=== PATIENT | female | born 1940 | race Caucasian/White ===

== ENCOUNTER → 2017-08-26 | Outpatient (CLI) | payer MEDICARE, OTHER ==
--- NOTE | 2017-08-26 16:14 | WOMENS IMAGING REPORT ---
EXAM DESCRIPTION: 3D SCREENING MAMMO BILAT COMPLETED DATE/TIME: 08/26/2017 1:51 pm REASON FOR STUDY: SCREENING MAMMO Z12.31 ENCNTR SCREEN MAMMOGRAM FOR MALIGNANT NEOPLASM OF RAINA M89. 9 DISORDER OF BONE, UNSPECIFIED COMPARISON: 2013 TECHNIQUE: Standard craniocaudal and mediolateral oblique views of each breast recorded using digita l acquisition and breast tomosynthesis. LIMITATIONS: None. FINDINGS: No masses, calcifications or architectural distortion. No areas of suspicion. Read with the assistance of CAD. .[facility] - R2 Cenova Version 1.3 .[facility] - R2 Cenova Version 1.3 .[facility] - R2 Cenova Version 2.4 [facility] [place]2 Cenova Version 2.4 [facility] - R2 Resource Protection Specialist Version 9.2 IMPRESSION: NORMAL MAMMOGRAM. BIRADS 1. BREAST DENSITY: b. There are scattered areas of fibroglandular density. BIRAD: 1 NEGATIVE RECOMMENDATION: ROUTINE SCREENING COMMENT: The patient has been notified of the results by letter per SA requirements. Additional no tification policies are in place for contacting patient with suspicious or incomplete findings. Quality ID #[id number]: The [employer] recommends an annual screening mammogram for women aged 40 years or over. This facility utilizes a reminder system to ensure that all patients receive reminder letters, and/or direct phone calls for appointments. This includes reminders for routine scr eening mammograms, diagnostic mammograms, or other Breast Imaging Interventions when appropriate. Th is patient will be placed in the appropriate reminder system. The [employer] [place] [employer] (ACR) has developed recommendations for screening MRI of the breast s in certain patient populations, to be used in conjunction with mammography. Breast MRI surveillanc e may be appropriate for women with more than 20% lifetime risk of developing breast cancer as deter mined by genetic testing, significant family history of the disease, or history of mantle radiation f or Hodgkins Disease. ACR Practice Guidelines 2008. DBT Technology DBT is a type of tomographic mammography. With conventional mammography, overlapping breast tissue ma y make lesions difficult to detect, even with good compression. DBT uses an x-ray tube that rotates a round the breast, taking images at different angles. These images are then combined to create thin sl ices of the breast that the radiologist can view as a 3D reconstruction. The [employer] unit can perform full-field digital mammograms (2D imaging); or DBT (3D imaging); or both, in a combination mode that quickly performs both the mammogram and the tomosynthesis scan while the breast is still compressed. PQRS 6045F: Fluoroscopic imaging is not utilized for breast tomosynthesis. TECHNICAL DOCUMENTATION: FINDING NUMBER: (1) ASSESSMENT: (1) JOB ID: [id number] [employer]- All Rights Reserved Reading location - IP/workstation name: [email or web address]
--- NOTE | 2017-08-26 16:30 | WOMENS IMAGING REPORT ---
EXAM DESCRIPTION: BONE DENSITY HIP/SPINE COMPLETED DATE/TIME: 08/26/2017 1:51 pm REASON FOR STUDY: DISORDER OF BONE, UNSPECIFIED Z12.31 ENCNTR SCREEN MAMMOGRAM FOR MALIGNANT NEOPLA SM OF RAINA M89.9 DISORDER OF BONE, UNSPECIFIED COMPARISON: 2013 TECHNIQUE: Dual-Energy X-ray Absorptiometry (DEXA) of the AP Spine and Hip. LIMITATIONS: None. FINDINGS: LUMBAR SPINE: The bone mineral density (BMD) measured from L1-L4 in the AP projection correlates with a T-score of -1.9, which is osteopenic as defined by the World Health Organization. This is stable compared to 20 14 HIP: The bone mineral density (BMD) measured in the left femoral neck at the hip correlates with a T-score of -1.8, which is osteopenic as defined by the World Health Organization. This is stable compared t o 2013 IMPRESSION: 1. LUMBAR SPINE: Osteopenic 2. HIP: Osteopenic COMMENT: The World Health Organization defines low BMD as follows: T-score: Normal: Greater than -1.0 Osteopenia: Between -1.0 and -2.5 Osteoporosis: Less than -2.5 without fractures Established osteoporosis: Less than -2.5 with fractures In general, you may wish to consider: Diagnosis Treatment Follow-up DEXA Normal BMD Prevention 2-3 years Osteopenia Prevention/Therapy 1-2 years Osteoporosis Therapy Yearly TECHNICAL DOCUMENTATION: JOB ID: [id number]- All Rights Reserved Reading location - IP/workstation name: [email or web address]
== END ==
LOC: WI 13:23
PROVIDERS: ATTEND Nurse Practitioner
DX: Z12.31 Encounter for screening mammogram for malignant neoplasm of breast (principal); M85.88 Other specified disorders of bone density and structure, other site
CPT/HCPCS: 77063; 77067; 77080

== ENCOUNTER 2019-09-02 09:02 | Emergency (ER) | payer MEDICARE ==
[2019-09-02] MEDS ORDERED: ONDANSETRON HCL INJ/PF 4 MG/2 ML SDV IV ONE (09:36)
[2019-09-02] MEDS ORDERED: MORPHINE SULFATE 10 MG/ML INJ IV ONE ×2 (09:36→09:39)
[2019-09-02 09:45] LABS: ABSOLUTE MONOCYTES (AUTO) 0.4 10^3/uL (0.1-1.4); ABSOLUTE NEUT (AUTO) 7.3 10^3/uL (1.7-8.2); BASOPHILS % (AUTO) 0.3 % (0-2); EOSINOPHILS % (AUTO) 0.1 % (0-6); HEMATOCRIT 41.2 % (36.0-47.0); HEMOGLOBIN 14.1 g/dL (12.0-15.5); LYMPHOCYTES % (AUTO) 10.8 % (13-45); MEAN CORPUSCULAR HEMOGLOBIN 31.1 pg (27.0-33.4); MEAN CORPUSCULAR HGB CONC 34.3 g/dL (32.0-36.0); MEAN CORPUSCULAR VOLUME 91 fl (80-97); PLATELET COUNT 262 10^3/uL (150-450); RED BLOOD COUNT 4.54 10^6/uL (3.72-5.28); RED CELL DISTRIBUTION WIDTH 13.6 % (11.5-14.0); SEGMENTED NEUTROPHILS % (AUTO) 83.8 % (42-78); TOTAL CELLS COUNTED % (AUTO) 100 %; WHITE BLOOD COUNT 8.8 10^3/uL (4.0-10.5)
[2019-09-02 10:08] LABS: ALBUMIN 4.4 g/dL (3.5-5.0); ALKALINE PHOSPHATASE 53 U/L (38-126); ANION GAP 8 (5-19); ASPARTATE AMINO TRANSFERASE 23 U/L (14-36); BILIRUBIN,TOTAL 0.7 mg/dL (0.2-1.3); BLOOD UREA NITROGEN 14 mg/dL (7-20); CALCIUM 10.1 mg/dL (8.4-10.2); CARBON DIOXIDE 26 mmol/L (22-30); CHLORIDE 103 mmol/L (98-107); CREATINE KINASE 66 U/L (30-135); GLUCOSE 111 mg/dL (75-110); POTASSIUM 3.8 mmol/L (3.6-5.0); TOTAL PROTEIN 6.8 g/dL (6.3-8.2)
[2019-09-02] MEDS ORDERED: NORMAL SALINE 1000 ML 1,000 ML IV ONE (10:10)
--- NOTE | 2019-09-02 10:11 | ER Document Report ---
Entered by ROXY LARA SCRIBE 09/02/19 0935 Acting as scribe for:CARLOS STROUD MD ED General - General Chief Complaint: Chest Pain > 30 Stated Complaint: CHEST PAIN Time Seen by Provider: 09/02/19 09:15 Primary Care Provider: ZIYAD ZAZUETA NP [Primary Care Provider] - Follow up as needed Mode of Arrival: Ambulatory Information source: Patient Notes: This 79 year old female patient presents to the emergency department today with complaints of abdominal pain which began this morning at 4:00 AM. Patient states that she feels like her "intestines are tied in knots". Patient complains of nausea without vomiting. Patient adds that it "kind of hurts all over" but the majority of her pain seems to be in the upper abdomen. TRAVEL OUTSIDE OF THE [place] IN LAST 30 DAYS: No - Related Data Allergies/Adverse Reactions: No Known Allergies Allergy (Verified 02/28/16 07:48) Past Medical History - General Information source: Patient - Social History Smoking Status: Never Smoker Cigarette use (# per day): No Chew tobacco use (# tins/day): No Frequency of alcohol use: Occasional Drug Abuse: None Lives with: Family Family History: Reviewed & Not Pertinent Patient has suicidal ideation: No Patient has homicidal ideation: No - Past Medical History Cardiac Medical History: Reports: Hx Hypertension - ON MEDS Musculoskeletal Medical History: Reports Hx Arthritis - hands, neck, hip Traumatic Medical History: Past Surgical History: Reports: Hx Appendectomy - at age [age] years old, Hx Inguinal Hernia - [place] in the , Hx Tubal Ligation - Immunizations Hx Diphtheria, Pertussis, Tetanus Vaccination: Yes Hx Pneumococcal Vaccination: 03/20/15 Review of Systems - Review of Systems Constitutional: No symptoms reported EENT: No symptoms reported Cardiovascular: No symptoms reported Respiratory: No symptoms reported Gastrointestinal: See HPI, Abdominal pain, Nausea. denies: Vomiting Genitourinary: No symptoms reported Female Genitourinary: No symptoms reported Musculoskeletal: No symptoms reported Skin: No symptoms reported Hematologic/Lymphatic: No symptoms reported Neurological/Psychological: No symptoms reported -: Yes All other systems reviewed and negative Physical Exam - Vital signs Vitals: Resp Pulse Ox 19 100 09/02/19 09:19 09/02/19 09:19 - Notes Notes: Physical Exam: General: Alert, appears uncomfortable, in distress secondary to pain. HEENT: Normocephalic. Atraumatic. PERRL. Extraocular movements intact. Orophary nx clear. Neck: Supple. Non-tender. Respiratory: No respiratory distress. Clear and equal breath sounds bilaterally. Cardiovascular: Regular rate and rhythm. Abdominal: Appears nauseated. No lower abdominal tenderness with palpation, exquisite epigastric and right upper quadrant tenderness with palpation. No distension. Normal Bowel Sounds. Back: No gross abnormalities. Extremities: Moves all four extremities. Upper extremities: Normal inspection. Normal ROM. Lower extremities: Normal inspection. No edema. Normal ROM. Neurological: Normal cognition. AAOx4. Normal speech. Psychological: Normal affect. Normal Mood. Skin: Warm. Dry. Normal color. Course - Re-evaluation Re-evalutation: 09/02/19 12:29 Repeat evaluation at this time after the patient has had pain medication and nausea medication on board for a while. She is now most tender in the right lower quadrant and does appear to be having focal tenderness over McBurney's point. We will proceed to IV contrasted CT scan. 09/02/19 14:09 I reviewed the findings with the patient. She states that her discomfort and nausea is better at this time. She does have an infirm spouse at home whom she cares for and would prefer to try outpatient management of her small bowel ileus at this time. She will be discharged with prescriptions for Zofran and Bentyl. She will try small sips of cool clear liquids for today and this evening. She understands that if she does not improve with this management, if her nauseousness continues to be a problem, or if she does worsen, then she will need to return to the hospital for admission. - Vital Signs Vital signs: Temp Pulse Resp BP Pulse Ox 97.5 F 14 132/56 H 98 09/02/19 09:20 09/02/19 14:01 09/02/19 14:01 09/02/19 14:01 - Laboratory Result Diagrams: 09/02/19 09:27 09/02/19 09:27 Laboratory results interpreted by me: 09/02/19 09/02/19 09/02/19 09:27 09:27 10:39 Lymph % (Auto) 10.8 L Seg Neutrophils % 83.8 H Sodium 136.6 L Glucose 111 H Urine Ketones 20 H - Diagnostic Test Radiology reviewed: Image reviewed, Reports reviewed - Gallbladder ultrasound shows a right renal cyst and mild dilatation of the right renal pelvis. No other abnormalities seen. CT scan of the abdomen pelvis with IV contrast shows a 3 cm lower pole cyst in the right kidney, and gas and with fluid levels with nondilated loops of small bowel suggestive of a small bowel ileus. No other abnormalities. - EKG Interpretation by Me EKG shows normal: Sinus rhythm, Sabael, Intervals, QRS Complexes, ST-T Waves Rate: Normal - 61 Rhythm: NSR Sabael/QRS: RBBB Discharge - Discharge Clinical Impression: Adynamic ileus, Nausea Abdominal pain Qualifiers: Abdominal location: generalized Qualified Code(s): R10.84 - Generalized abdominal pain Condition: Stable Disposition: HOME, SELF-CARE Additional Instructions: Nausea or Vomiting, Nonspecific Vomiting (or nausea without vomiting) can be caused by many different problems. Of course, it can mean that something's wrong with the stomach, such as "stomach flu," ulcers, or inflammation. But it can also be a symptom of a problem that has nothing to do with the stomach or intestines. Vomiting is common with severe headaches, earaches, and tonsillitis. We see it with pneumonia or heart attacks. Drugs can cause nausea. Many abdominal problems cause vomiting; for example, gallstones, kidney stones, pancreatitis, and int estinal obstruction (blocked bowels). In most cases, curing the vomiting depends on fixing the problem that caused it. For temporary relief, we may use an anti-nausea medicine. For home use, we can prescribe suppositories, chewable pills, pills that dissolve in the mouth, or liquid anti-nausea drugs. If the vomiting seems to be caused by a problem in the stomach, acid-suppressing drugs may be prescribed as well. It's important to avoid dehydration. Sip clear liquids. Take increasing am ounts of fluid over the first 24 hours. Then start small amounts of bland foods (such as dry toast, applesauce, mashed potato). Avoid aspirin, tobacco, and alcohol. Gradually resume your usual diet. If the vomiting worsens, if the problem that's making you vomit worsens, or if there's evidence of bleeding in the stomach (such as black, tarry stool, bloody or black vomit, or lightheadedness), you should return immediately. Call your doctor if you aren't improved in 24 to 36 hours. Abdominal Pain There are many causes of abdominal pain. Pain can mean a serious problem requiring surgery (such as appendicitis). It can also be an innocent problem that goes away on its own (such as a viral infection). Often, time must pass to determine the cause of pain. The physician does not feel that hospitalization is necessary, at present. Things may change within the next 24 hours. Call the doctor or come back for re- examination if any problems occur, such as: (1) Pain that becomes more severe, steady, or becomes concentrated in one specific area. Also, pain that is more severe with movement or coughing. (2) Vomiting that persists or becomes more frequent. (3) Blood in the vomitus, urine, or bowel movements. Blood in the stool may have a tarry or black appearance. (4) Shaking chills or fever greater than 100 degrees F. (5) The abdomen becomes more distended or swollen. (6) Bowel movements cease. (7) Failure to improve as expected. Your evaluation today suggest that you have a small bowel ileus. This is a condition where the small bowel stops functioning properly and does not propel foods and fluids forward. There may be a feeling of distention, with diffuse abdominal cramping and nausea. Take medications as prescribed for nausea and abdominal cramps. Drink small sips of cool clear liquids throughout the day in the evening. Do not try to start solid food until you have been nausea free and are moving your bowels well. Follow-up with your primary care provider as needed. RETURN TO THE EMERGENCY ROOM IF ANY NEW OR WORSENING SYMPTOMS. 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
[2019-09-02 10:20] LABS: CREATINE KINASE MB 3.21 ng/mL (<4.55)
[2019-09-02 10:27] LABS: TROPONIN I < 0.012 ng/mL
[2019-09-02 10:59] LABS: AMORPHOUS SEDIMENT,URINE 1+ /HPF; APPEARANCE,URINE TURBID; BILIRUBIN,URINE NEGATIVE (NEGATIVE); COLOR,URINE YELLOW; GLUCOSE, URINE NEGATIVE (NEGATIVE); KETONES,URINE 20 mg/dL (NEGATIVE); LEUKOCYTE ESTERASE,URINE NEGATIVE (NEGATIVE); NITRITE,URINE NEGATIVE (NEGATIVE); PROTEIN,URINE NEGATIVE (NEGATIVE); URINE SPECIFIC GRAVITY 1.015; UROBILINOGEN,URINE NEGATIVE mg/dL (<2.0)
--- NOTE | 2019-09-02 11:25 | RADIOLOGY REPORT (SQ) ---
EXAM DESCRIPTION: CHEST SINGLE VIEW IMAGES COMPLETED DATE/TIME: 09/02/2019 10:12 am REASON FOR STUDY: Epigastric abdominal pain with nausea COMPARISON: 09/26/2015 EXAM PARAMETERS: NUMBER OF VIEWS: One view. TECHNIQUE: Single frontal radiographic view of the chest acquired. RADIATION DOSE: NA LIMITATIONS: None. FINDINGS: LUNGS AND PLEURA: No opacities, masses or pneumothorax. No pleural effusion. MEDIASTINUM AND HILAR STRUCTURES: No masses. Contour normal. HEART AND VASCULAR STRUCTURES: Heart normal in size. Normal vasculature. BONES: No acute findings. HARDWARE: None in the chest. OTHER: No other significant finding. IMPRESSION: NO ACUTE RADIOGRAPHIC FINDING IN THE CHEST. TECHNICAL DOCUMENTATION: JOB ID: [id number] 2010 [employer]- All Rights Reserved Reading location - IP/workstation name: [email or web address]
--- NOTE | 2019-09-02 12:23 | EKG REPORT ---
SEVERITY:- ABNORMAL ECG - SINUS RHYTHM RIGHT BUNDLE BRANCH BLOCK : Confirmed by: Lukasz Olivares MD 02-Sep-2019 12:22:58
--- NOTE | 2019-09-02 12:23 | RADIOLOGY REPORT (SQ) ---
EXAM DESCRIPTION: U/S ABDOMEN LIMITED W/O DOP IMAGES COMPLETED DATE/TIME: 09/02/2019 12:08 pm REASON FOR STUDY: RUQ and epigastric pain with nausea COMPARISON: None. TECHNIQUE: Dynamic and static grayscale images acquired of the abdomen and recorded on PACS. Esmero magalie selected color Doppler and spectral images recorded. LIMITATIONS: None. FINDINGS: PANCREAS: No masses. Visualized pancreatic duct normal caliber. LIVER: The liver measures 13.5 cm in length, normal size. No masses. Echotexture normal. LIVER VASCULATURE: Normal directional flow of the main portal vein and hepatic veins. GALLBLADDER: No stones. The gallbladder wall measures 2.3 mm, normal wall thickness. No pericholecy stic fluid. ULTRASOUND-DETECTED DAI'S SIGN: Negative. INTRAHEPATIC DUCTS AND COMMON DUCT: CBD measures 4.9 mm in diameter, normal. The intrahepatic ducts n ormal caliber. No filling defects. INFERIOR VENA CAVA: Normal flow. AORTA: No aneurysm. RIGHT KIDNEY: The right kidney measures 9.0 cm in length. Mild pelvic dilatation without evidence o f calyceal dilatation. A 3.3 x 2.7 x 2.0 cm cyst in the lower pole of the kidney. No calcifications . PERITONEAL AND RIGHT PLEURAL SPACE: No ascites or effusions. OTHER: No other significant findings. IMPRESSION: 1. Right renal cyst. 2. Mild dilatation of the right renal pelvis. No evidence of calyceal dilatation. 3. Examination is otherwise unremarkable sonographically. TECHNICAL DOCUMENTATION: JOB ID: [id number] 2010 [employer]- All Rights Reserved Reading location - IP/workstation name: [email or web address]
--- NOTE | 2019-09-02 13:23 | RADIOLOGY REPORT (SQ) ---
EXAM DESCRIPTION: CT ABD/PELVIS WITH IV ONLY IMAGES COMPLETED DATE/TIME: 09/02/2019 1:07 pm REASON FOR STUDY: RLQ abd pain COMPARISON: None. TECHNIQUE: CT scan of the abdomen and pelvis performed using helical scanning technique with dynamic intravenous contrast injection. No oral contrast. Images reviewed with lung, soft tissue, and bone windows. Reconstructed coronal and sagittal MPR images reviewed. Delayed images for evaluation of the urinary system also acquired. All images stored on PACS. All CT scanners at this facility use dose modulation, iterative reconstruction, and/or weight based d osing when appropriate to reduce radiation dose to as low as reasonably achievable (ALARA). [facility]: Dose Right [facility]: CareDose [facility]: Dose Right [facility]: Teradose 4D [facility]: [employer] CONTRAST TYPE AND DOSE: contrast/concentration: Isovue 350.00 mg/ml; Total Contrast Delivered: 50.0 ml; Total Saline Delivered: 65.0 ml RENAL FUNCTION: GFR > 60. RADIATION DOSE: CT Rad equipment meets quality standard of care and radiation dose reduction techniq ues were employed. CTDIvol: NaN - NaN mGy. DLP: 0 mGy-cm.. LIMITATIONS: Artifact from right hip arthroplasty. FINDINGS: LOWER CHEST: No significant findings. No nodules or infiltrates. LIVER: Normal size. No masses. No dilated ducts. SPLEEN: Normal size. No focal lesions. PANCREAS: No masses. No significant calcifications. No adjacent inflammation or peripancreatic fluid collections. Pancreatic duct not dilated. GALLBLADDER: No identified stones by CT criteria. No inflammatory changes to suggest cholecystitis. ADRENAL GLANDS: No significant masses or asymmetry. RIGHT KIDNEY AND URETER: 3 cm lower pole cyst. No solid masses. No significant calcifications. N o hydronephrosis or hydroureter. LEFT KIDNEY AND URETER: No solid masses. No significant calcifications. No hydronephrosis or hydr oureter. AORTA AND VESSELS: No aneurysm. RETROPERITONEUM: No retroperitoneal adenopathy, hemorrhage or masses. BOWEL AND PERITONEAL CAVITY: Gas fluid levels within nondilated loops of small bowel. No masses or i nflammatory changes. No free fluid or peritoneal masses. APPENDIX: Surgically absent. PELVIS: No mass. No free fluid. Normal bladder. ABDOMINAL WALL: No masses. No hernias. BONES: No significant or acute findings. OTHER: No other significant finding. IMPRESSION: Ileus. No evidence of bowel obstruction. TECHNICAL DOCUMENTATION: JOB ID: [id number] Quality ID # [id number]: Final reports with documentation of one or more dose reduction techniques (e.g., Au tomated exposure control, adjustment of the mA and/or kV according to patient size, use of iterative reconstruction technique) 2010 [employer]- All Rights Reserved Reading location - IP/workstation name: [email or web address]
[2019-09-02 14:28] VITALS: BP 132/52
== END 2019-09-02 14:26 | disposition home or self-care (01) ==
LOC: ER 09:02
DX: K56.0 Paralytic ileus (principal); R11.0 Nausea; R10.84 Generalized abdominal pain; R10.816 Epigastric abdominal tenderness; R10.811 Right upper quadrant abdominal tenderness; Q61.01 Congenital single renal cyst; I45.10 Unspecified right bundle-branch block; Z90.49 Acquired absence of other specified parts of digestive tract; Z98.51 Tubal ligation status
CPT/HCPCS: 93005; 99285; 96361; 96374; 96375; 36415; 82553; 82550; 83690; 85025; 80053; 81001; 84484; 71045; 76705; 74177; 93010; J2270; J2405; J7030

== ENCOUNTER 2019-09-02 21:11 | Inpatient (IN) | payer MEDICARE ==
[2019-09-02] MEDS ORDERED: ONDANSETRON HCL INJ/PF 4 MG/2 ML SDV IV ONE (21:48)
[2019-09-02] MEDS ORDERED: MORPHINE SULFATE 10 MG/ML INJ IV ONE (21:48)
--- NOTE | 2019-09-02 21:48 | ER Document Report ---
ED Medical Screen (RME) - General Stated Complaint: VOMITING AND ABDOMINAL PAIN Primary Care Provider: ZIYAD ZAZUETA NP [Primary Care Provider] - Follow up as needed Notes: Patient is an 79-year-old white female who was seen here earlier today for complaints of abdominal pain. She was diagnosed with an ileus after a CAT scan, had her pain and nausea controlled at that time. She wished to be discharged home for outpatient management of this ileus given a spouse who relied on her for care. She was advised to return if worsening for admission. She states she went home laid down at the prescriptions filled and started feeling "sick to my stomach" again. Complains of ongoing nausea and vomiting as well as abdominal pain. I have treated and performed a rapid initial assessment of this patient. A comprehensive ED assessment and evaluation of the patient, analysis of test results and completion of medical decision making process will be conducted by additional ED providers. PHYSICAL EXAMINATION: GENERAL: Well-appearing, well-nourished and in no acute distress. A&Ox4. Answers questions appropriately. TRAVEL OUTSIDE OF THE [place] IN LAST 30 DAYS: No - Related Data Allergies/Adverse Reactions: No Known Allergies Allergy (Verified 02/28/16 07:48) Past Medical History - Past Medical History Cardiac Medical History: Reports: Hx Hypertension - ON MEDS Denies: Hx Coronary Artery Disease, Hx Heart Attack Pulmonary Medical History: Denies: Hx Asthma, Hx Bronchitis, Hx COPD, Hx Pneumonia Neurological Medical History: Denies: Hx Cerebrovascular Accident, Hx Seizures GI Medical History: Denies: Hx Hepatitis, Hx Hiatal Hernia, Hx Ulcer Musculoskeltal Medical History: Reports Hx Arthritis - hands, neck, hip Traumatic Medical History: Infectious Medical History: Denies: Hx Hepatitis Past Surgical History: Reports: Hx Appendectomy - at age [age] years old, Hx Inguinal Hernia - RIH in the , Hx Tubal Ligation. Denies: Hx Hysterectomy, Hx Mastectomy, Hx Open Heart Surgery, Hx Pacemaker - Immunizations Hx Diphtheria, Pertussis, Tetanus Vaccination: Yes Physical Exam - Vital signs Vitals: Temp Pulse Resp BP Pulse Ox 98.2 F 57 L 16 171/62 H 99 09/02/19 21:20 09/02/19 21:20 09/02/19 21:20 09/02/19 21:20 09/02/19 21:20 Course - Vital Signs Vital signs: Temp Pulse Resp BP Pulse Ox 98.2 F 57 L 16 171/62 H 99 09/02/19 21:20 09/02/19 21:20 09/02/19 21:20 09/02/19 21:20 09/02/19 21:20 Doctor's Discharge - Discharge Referrals: ZIYAD ZAZUETA NP [Primary Care Provider] - Follow up as needed
[2019-09-02 22:47] LABS: ABSOLUTE LYMPHOCYTES (AUTO) 0.8 10^3/uL (0.5-4.7); ABSOLUTE MONOCYTES (AUTO) 0.4 10^3/uL (0.1-1.4); ABSOLUTE NEUT (AUTO) 11.8 10^3/uL (1.7-8.2); BASOPHILS % (AUTO) 0.3 % (0-2); HEMATOCRIT 46.7 % (36.0-47.0); HEMOGLOBIN 15.8 g/dL (12.0-15.5); LYMPHOCYTES % (AUTO) 6.2 % (13-45); MEAN CORPUSCULAR HGB CONC 33.8 g/dL (32.0-36.0); MEAN CORPUSCULAR VOLUME 92 fl (80-97); MONOCYTES % (AUTO) 3.2 % (3-13); PLATELET COUNT 284 10^3/uL (150-450); RED BLOOD COUNT 5.09 10^6/uL (3.72-5.28); RED CELL DISTRIBUTION WIDTH 13.2 % (11.5-14.0); SEGMENTED NEUTROPHILS % (AUTO) 90.3 % (42-78); TOTAL CELLS COUNTED % (AUTO) 100 %
[2019-09-02 23:03] LABS: ALBUMIN 4.8 g/dL (3.5-5.0); ALKALINE PHOSPHATASE 60 U/L (38-126); ANION GAP 11 (5-19); ASPARTATE AMINO TRANSFERASE 27 U/L (14-36); BLOOD UREA NITROGEN 11 mg/dL (7-20); CALCIUM 10.3 mg/dL (8.4-10.2); CARBON DIOXIDE 25 mmol/L (22-30); CHLORIDE 99 mmol/L (98-107); GLUCOSE 138 mg/dL (75-110); POTASSIUM 4.2 mmol/L (3.6-5.0); TOTAL PROTEIN 7.5 g/dL (6.3-8.2)
--- NOTE | 2019-09-02 23:50 | ER Document Report ---
ED GI/ - General Chief Complaint: Abdominal Pain Stated Complaint: VOMITING AND ABDOMINAL PAIN Time Seen by Provider: 09/02/19 23:25 Primary Care Provider: ZIYAD ZAZUETA NP [Primary Care Provider] - Follow up as needed Mode of Arrival: Ambulatory Information source: Patient Notes: This 79-year-old presents to the emergency department with a complaint of nausea and vomiting with associated visit to the emergency department earlier on 09/02/2019. Evaluation revealed a non-obstructed ileus. Patient was given a trial of medication for outpatient treatment but told if her symptoms worsen that she should return for hospital admission. Apparently at home she took a dose of the pain medication began to have uncontrolled nausea and vomiting with cramping abdominal pain. She has not been able to keep anything down. She denies fever diarrhea. TRAVEL OUTSIDE OF THE [place] IN LAST 30 DAYS: No - Related Data Allergies/Adverse Reactions: No Known Allergies Allergy (Verified 02/28/16 07:48) Home Medications: amilodipine, vitamin b12, d. zofran. pain med Past Medical History - Social History Smoking Status: Never Smoker Family History: Reviewed & Not Pertinent Patient has suicidal ideation: No Patient has homicidal ideation: No - Past Medical History Cardiac Medical History: Reports: Hx Hypertension - ON MEDS Denies: Hx Coronary Artery Disease, Hx Heart Attack Pulmonary Medical History: Denies: Hx Asthma, Hx Bronchitis, Hx COPD, Hx Pneumonia Neurological Medical History: Denies: Hx Cerebrovascular Accident, Hx Seizures GI Medical History: Denies: Hx Hepatitis, Hx Hiatal Hernia, Hx Ulcer Musculoskeletal Medical History: Reports Hx Arthritis - hands, neck, hip Traumatic Medical History: Infectious Medical History: Denies: Hx Hepatitis Past Surgical History: Reports: Hx Appendectomy - at age [age] years old, Hx Inguinal Hernia - RIH in the , Hx Tubal Ligation. Denies: Hx Hysterectomy, Hx Mastectomy, Hx Open Heart Surgery, Hx Pacemaker - Immunizations Hx Diphtheria, Pertussis, Tetanus Vaccination: Yes Hx Pneumococcal Vaccination: 03/20/15 Review of Systems - Review of Systems Notes: Constitutional: Negative for fever. HENT: Negative for sore throat. Eyes: Negative for visual changes. Cardiovascular: Negative for chest pain. Respiratory: Negative for shortness of breath. Gastrointestinal:+ abdominal pain, +vomiting Genitourinary: Negative for dysuria. Musculoskeletal: Negative for back pain. Skin: Negative for rash. Neurological: Negative for headaches, weakness or numbness. 10 point ROS negative except as marked above and in HPI. Physical Exam - Vital signs Vitals: Temp Pulse Resp BP Pulse Ox 98.2 F 57 L 16 171/62 H 99 09/02/19 21:20 09/02/19 21:20 09/02/19 21:20 09/02/19 21:20 09/02/19 21:20 - Notes Notes: PHYSICAL EXAMINATION: Physical Exam: General: Well-nourished well-developed 79-year-old woman in no acute distress HEENT: NC/AT, pupils equal round and reactive to light, MM moist,nares clear, oropharynx clear, airway patent Neck: supple, no adenopathy, no masses. Good range of motion Lungs: clear, no wheezing, no rales no rhonchi CVS: Regular rate and rhythm no murmur gallop or rub Abdomen: Soft, active, mild periumbilical tenderness to deep palpation, no masses, no hepatosplenomegaly Ext: No edema, clubbing or cyanosis. Neuro: Alert and responsive, moving all 4 extremities on command, cranial nerves intact, no focal findings Skin: Intact no open lesions, no rash PSYCH: Normal mood, normal affect. Course - Re-evaluation Re-evalutation: 09/03/19 01:34 Patient was seen and treated earlier in the day 09/02/2019. Found to have an ileus she was treated as an outpatient with analgesic and antiemetic medications. Tonight she was having nausea and vomiting and unable to keep the medications down. She returned to the hospital for further treatment. She was given IV fluids, IV morphine, and Zofran. Presently she is resting quietly. Repeat two-view abdominal x-ray reveals dilated loops of bowel with no free air. - Vital Signs Vital signs: Temp Pulse Resp BP Pulse Ox 98.2 F 57 L 16 171/62 H 99 09/02/19 21:20 09/02/19 21:20 09/02/19 21:20 09/02/19 21:20 09/02/19 21:20 - Laboratory Result Diagrams: 09/02/19 22:20 09/02/19 22:20 Laboratory results interpreted by me: 09/02/19 09/02/19 22:20 22:20 WBC 13.0 H Hgb 15.8 H Lymph % (Auto) 6.2 L Absolute Neuts (auto) 11.8 H Seg Neutrophils % 90.3 H Sodium 134.8 L Glucose 138 H Calcium 10.3 H - Diagnostic Test Radiology reviewed: Image reviewed, Reports reviewed - 2 view x-ray abdomen: Dilated loops of bowel, nonspecific. Discharge - Discharge Clinical Impression: Adynamic ileus Nausea and vomiting Qualifiers: Vomiting type: unspecified Vomiting Intractability: non-intractable Qualified Code(s): R11.2 - Nausea with vomiting, unspecified Condition: Good Disposition: ADMITTED INPATIENT Admitting Provider: Wally (Hospitalist) Unit Admitted: Medical Floor Referrals: ZIYAD ZAZUETA NP [Primary Care Provider] - Follow up as needed
--- NOTE | 2019-09-03 01:49 | RADIOLOGY REPORT (SQ) ---
EXAM DESCRIPTION: XR ABDOMEN 2 VIEWS SUPINE ERECT COMPLETED DATE/TME: 09/02/2019 23:56 CLINICAL HISTORY: 79 years, Female, Ileus COMPARISON: CT 09/02/2019 NUMBER OF VIEWS: 2 TECHNIQUE: Supine and erect views of the abdomen LIMITATIONS: None. FINDINGS: Residual contrast in the urinary bladder. Post surgical change right hip. Mildly dilated air-filled loops of small bowel with air-fluid levels likely reflecting ileus. No free air. Osteopenia IMPRESSION: Probable small bowel ileus as above. Follow-up recommended copyright 2010 [employer]- All Rights Reserved
[2019-09-03] MEDS ORDERED: MAG HYDROX/AL HYDROX/SIMETH SUSP 30 ML UDCUP PO PRN (02:17)
[2019-09-03] MEDS ORDERED: PROMETHAZINE HCL INJ 25 MG/1 ML VIAL IV PRN (02:17)
[2019-09-03] MEDS ORDERED: HYDRALAZINE HCL INJ/PF 20 MG/1 ML SDV IV PRN ×2 (02:23→10:17)
[2019-09-03] MEDS ORDERED: LORAZEPAM INJ 2 MG/1 ML VIAL IV PRN (02:23)
[2019-09-03] MEDS ORDERED: ACETAMINOPHEN 650 MG SUPP.RECT PR PRN (02:23)
[2019-09-03] MEDS ORDERED: MORPHINE SULFATE 10 MG/ML INJ IV PRN (02:23)
[2019-09-03] MEDS: DEXTROSE 5%-LACTATED RINGERS 1,000 ML IV PRN ×3 (03:30→20:40)
[2019-09-03] MEDS: HEPARIN SOD (PORCINE) 5,000 UNIT/ML 1 ML VIAL SUBCUT SCH ×3 (05:45→21:23)
[2019-09-03] MEDS: METOCLOPRAMIDE HCL INJ/PF 10 MG/2 ML SDV IV SCH ×3 (05:45→18:47)
--- NOTE | 2019-09-03 05:52 | PDOC H&P ---
History of Present Illness Admission Date/PCP: 09/03/2019 01:45 ZIYAD ZAZUETA NP Patient complains of: Nausea and vomiting History of Present Illness: SE DOMINGUEZ is a 79 year old female who re-presented to the emergency room with acute severe nausea and vomiting. She admits the onset of mild to moderate generalized colicky abdominal pain on the game programmer of 09/02/2019. She was s een by in the ER, diagnosed with an adynamic ileus and was discharged to home with oral Bentyl and Zofran for outpatient treatment. After arriving home she took her first dose of Bentyl and began to suffer severe nausea with vomiting. Her vomiting has been intractable, not responding to Zofran. Her associated nonradiating colicky abdominal pain persists unchanged and she admits accompanying anorexia. She denies other associated or accompanying signs and symptoms. She denies prior similar episodes. She has not identified any aggravating or ameliorating factors for her nausea and vomiting. In the emergency room she was found to have an adynamic ileus with a mild leukocytosis. She was subsequently admitted to the hospital for further evaluation treatment. Past Medical History Cardiac Medical History: Reports: Hypertension Denies: Atrial Fibrillation, Congestive Heart Failure, Coronary Artery Disease, Myocardial Infarction, Hyperlipidema Pulmonary Medical History: Denies: Asthma, Bronchitis, Chronic Obstructive Pulmonary Disease (COPD), Pneumonia EENT Medical History: Denies: Cataracts, Ears - Hearing aids Neurological Medical History: Denies: Hemorrhagic CVA, Ischemic CVA, Seizures Endocrine Medical History: Denies: Diabetes Mellitus Type 1, Diabetes Mellitus Type 2, Hyperthyroidism, Hypothyroidism Renal/ Medical History: Denies: Chronic Kidney Disease, Nephrolithiasis Malignancy Medical History: Reports: None GI Medical History: Denies: Cirrhosis, Crohn's Disease, Hepatitis, Hiatal Hernia, Peptic Ulcer Disease, Ulcerative Colitis Musculoskeltal Medical History: Reports: Arthritis - Osteoarthritis involving the bilateral hands, neck & right hip Denies: Fibromyalgia, Gout Skin Medical History: Denies: Eczema, Psoriasis Psychiatric Medical History: Denies: Alcohol Dependency, Substance Abuse, Tobacco Dependency Traumatic Medical History: Reports: None Hematology: Denies: Anemia, Sickle Cell Disease Infectious Medical History: Reports: None Past Surgical History Past Surgical History: Reports: Appendectomy, Herniorrhaphy - Right inguinal hernia, Hip Replacement, Tubal Ligation Social History Information Source: Patient Lives with: Spouse/Significant other - Primary care provider for with dementia Smoking Status: Never Smoker Electronic Cigarette use?: No Frequency of Alcohol Use: None Hx Recreational Drug Use: No Drugs: None Hx Prescription Drug Abuse: No - Advance Directive Resuscitation Status: Full Code Surrogate healthcare decision maker:: Lexus Machado Family History Family History: DM. denies: CAD, Hypertension, Malignancy Parental Family History Reviewed: Yes Children Family History Reviewed: No Sibling(s) Family History Reviewed.: Yes Medication/Allergy Home Medications: Amlodipine Besylate [Norvasc 2.5 mg Tablet] 2.5 mg PO DAILY #15 tablet 09/26/15 Dicyclomine HCl [Bentyl 10 mg Capsule] 10 mg PO ASDIR PRN #20 capsule 09/02/19 Ondansetron [Zofran Odt 4 mg Tablet] 1 - 2 tab PO Q4H PRN #15 tab.rapdis 09/02/19 Allergies/Adverse Reactions: No Known Allergies Allergy (Verified 02/28/16 07:48) Review of Systems Constitutional: PRESENT: as per HPI, anorexia. ABSENT: chills, fever(s) Eyes: ABSENT: visual disturbances, other - Eye pain Ears: ABSENT: hearing changes, other - Ear pain Nose, Mouth, and Throat: ABSENT: headache(s), sore throat Cardiovascular: ABSENT: chest pain, palpitations Respiratory: ABSENT: cough, dyspnea Gastrointestinal: PRESENT: abdominal pain, nausea, vomiting. ABSENT: constipation, diarrhea Genitourinary: ABSENT: dysuria, hematuria Musculoskeletal: ABSENT: back pain, joint swelling Integumentary: ABSENT: pruritus, rash Neurological: ABSENT: confusion, convulsions, focal weakness, memory loss, syncope Psychiatric: ABSENT: anxiety, depression Endocrine: ABSENT: cold intolerance, heat intolerance, polydipsia, polyphagia, polyuria Hematologic/Lymphatic: ABSENT: easy bleeding, easy bruising Allergic/Immunologic: ABSENT: seasonal rhinorrhea Physical Exam Vital Signs: Temp Pulse Resp BP Pulse Ox 98.2 F 57 L 16 171/62 H 99 09/02/19 21:20 09/02/19 21:20 09/02/19 21:20 09/02/19 21:20 09/02/19 21:20 Intake & Output 09/01/19 09/02/19 09/03/19 23:59 23:59 23:59 Weight 48.7 kg General appearance: PRESENT: no acute distress, cooperative, well-developed Head exam: PRESENT: atraumatic, normocephalic Eye exam: PRESENT: conjunctiva pink. ABSENT: conjunctival injection, scleral icterus Ear exam: PRESENT: normal external ear exam. ABSENT: bleeding, drainage Mouth exam: PRESENT: dry mucosa, neck supple Neck exam: ABSENT: thyromegaly, tracheal deviation Respiratory exam: PRESENT: clear to auscultation [place], symmetrical, unlabored Cardiovascular exam: PRESENT: RRR. ABSENT: clicks, gallop, rubs Pulses: PRESENT: normal radial pulses, normal dorsalis pedis pul Vascular exam: PRESENT: normal capillary refill. ABSENT: pallor GI/Abdominal exam: PRESENT: hypoactive bowel sounds, soft, tenderness - Mild generalized right lower quadrant abdominal tenderness, without localization. ABSENT: distended, guarding Rectal exam: PRESENT: deferred Extremities exam: ABSENT: joint swelling, pedal edema Musculoskeletal exam: ABSENT: deformity, dislocation Neurological exam: PRESENT: alert, oriented to person, oriented to place, oriented to time, oriented to situation, CN II-XII grossly intact. ABSENT: motor sensory deficit Psychiatric exam: PRESENT: appropriate affect, normal mood Skin exam: PRESENT: dry, intact, warm. ABSENT: jaundice, rash, urticaria Results Laboratory Results: 09/02/19 22:20 09/02/19 22:20 09/02/19 09/02/19 22:20 22:20 WBC 13.0 H RBC 5.09 Hgb 15.8 H Hct 46.7 MCV 92 MCH 31.0 MCHC 33.8 RDW 13.2 Plt Count 284 Seg Neutrophils % 90.3 H Sodium 134.8 L Potassium 4.2 Chloride 99 Carbon Dioxide 25 Anion Gap 11 BUN 11 Creatinine 0.64 Est GFR ( Amer) > 60 Glucose 138 H Calcium 10.3 H Total Bilirubin 1.0 AST 27 Alkaline Phosphatase 60 Total Protein 7.5 Albumin 4.8 Lipase 72.4 Assessment and Plan - Diagnosis (1) Adynamic ileus Is this a current diagnosis for this admission?: Yes (2) Nausea and vomiting Qualifiers: Vomiting type: unspecified Vomiting Intractability: unspecified Qualified Code(s): R11.2 - Nausea with vomiting, unspecified Is this a current diagnosis for this admission?: Yes (3) Abdominal pain Qualifiers: Abdominal location: generalized Qualified Code(s): R10.84 - Generalized abdominal pain Is this a current diagnosis for this admission?: Yes (4) Leukocytosis Qualifiers: Leukocytosis type: unspecified Qualified Code(s): D72.829 - Elevated white blood cell count, unspecified Is this a current diagnosis for this admission?: Yes (5) Essential hypertension Is this a current diagnosis for this admission?: Yes - Plan Summary Summary: Patient is admitted to the medical floor where she will receive routine supportive and symptomatic cares. She will be treated with IV fluids and IV antiemetics utilizing Reglan. She will be started on a clear liquid diet and advanced to a cardiac diet as tolerated. Her amlodipine will be restarted for her hypertension when she is able to tolerate oral medications, until that time she will be treated with hydralazine 20 mg IV every 4 hours as needed. She will use morphine sulfate 2 to 4 mg IV every 2 hours as needed for pain control and Ativan 1 mg IV every 4 hours as needed for anxiety or restlessness. CBCs, metabolic profiles and magnesium levels will be obtained as appropriate. - Time Time Spent with patient: 15-24 minutes Medications reviewed and adjusted accordingly: Yes Anticipated discharge: Home - Inpatient Certification Based on my medical assessment, after consideration of the patient's comorbidities, presenting symptoms, or acuity I expect that the services needed warrant INPATIENT care.: Yes I certify that my determination is in accordance with my understanding of Medicare's requirements for reasonable and necessary INPATIENT services [42 CFR 412.3e].: Yes Medical Necessity: Failure to Improve With Outpatient Therapy, Need For IV Fluids, Need for Pain Control
[2019-09-03] MEDS ORDERED: METOCLOPRAMIDE HCL INJ/PF 10 MG/2 ML SDV IV SCH (06:00)
[2019-09-03 06:25] LABS: APPEARANCE,URINE SLIGHTLY-CLOUDY; BILIRUBIN,URINE NEGATIVE (NEGATIVE); COLOR,URINE YELLOW; GLUCOSE, URINE 50 mg/dL (NEGATIVE); KETONES,URINE 80 mg/dL (NEGATIVE); PROTEIN,URINE NEGATIVE (NEGATIVE); URINE SPECIFIC GRAVITY 1.025; UROBILINOGEN,URINE NEGATIVE mg/dL (<2.0)
[2019-09-03] MEDS: MORPHINE SULFATE 10 MG/ML INJ IV PRN ×3 (08:43→21:29)
[2019-09-03] MEDS: FAMOTIDINE INJ/PF 20 MG/2 ML SDV IV SCH ×2 (10:18→21:23)
[2019-09-03 11:26] LABS: ABSOLUTE LYMPHOCYTES (AUTO) 0.9 10^3/uL (0.5-4.7); ABSOLUTE MONOCYTES (AUTO) 0.7 10^3/uL (0.1-1.4); BASOPHILS % (AUTO) 0.2 % (0-2); HEMATOCRIT 37.1 % (36.0-47.0); LYMPHOCYTES % (AUTO) 6.6 % (13-45); MEAN CORPUSCULAR HGB CONC 34.1 g/dL (32.0-36.0); MEAN CORPUSCULAR VOLUME 91 fl (80-97); MONOCYTES % (AUTO) 5.2 % (3-13); PLATELET COUNT 242 10^3/uL (150-450); RED BLOOD COUNT 4.08 10^6/uL (3.72-5.28); RED CELL DISTRIBUTION WIDTH 13.2 % (11.5-14.0); TOTAL CELLS COUNTED % (AUTO) 100 %; WHITE BLOOD COUNT 13.6 10^3/uL (4.0-10.5)
[2019-09-03 11:48] LABS: ALBUMIN 3.2 g/dL (3.5-5.0); ALKALINE PHOSPHATASE 37 U/L (38-126); ASPARTATE AMINO TRANSFERASE 17 U/L (14-36); BILIRUBIN,TOTAL 0.5 mg/dL (0.2-1.3); BLOOD UREA NITROGEN 10 mg/dL (7-20); CARBON DIOXIDE 28 mmol/L (22-30); GLUCOSE 163 mg/dL (75-110); POTASSIUM 3.9 mmol/L (3.6-5.0); TOTAL PROTEIN 5.2 g/dL (6.3-8.2)
[2019-09-03 12:00] LABS: CHLORIDE 102 mmol/L (98-107)
[2019-09-03 12:12] LABS: HEMOGLOBIN 12.7 g/dL (12.0-15.5)
[2019-09-03 12:24] LABS: ANION GAP 4 (5-19)
--- NOTE | 2019-09-03 14:37 | Progress Note ---
Provider Note Provider Note: Brief provider note as patient was admitted after midnight. Patient was admitted after 2 trips to the emergency room yesterday for nausea and vomiting. This morning patient still is having some mild abdominal pain and nausea but no active vomiting. Her temperature is 98.2 her pulse is 55 blood pressure 144/[address] Patient did have a [address] scan of the abdomen and pelvis yesterday morning on her first ER visit with IV contrast only. This showed only a mild ileus with no sign of enteritis. KUB on admission showed once again a mild ileus I have changed patient to a n.p.o. diet ice chips only. Patient will continue IV meds and IV fluids. If patient fails to improve by tomorrow morning will consult general surgery Repeat labs this morning show the white count to be about the same 13.6 hemoglobin is down to 12.7 Chemistry panel shows stable renal functions alkaline Vandana is down to 37 liver functions remain normal, lipase is down from 72.4-59.9 Patient's IV fluids are at 167 an hour will decrease this to 100/h. Using IV Phenergan for vomiting Also on IV Pepcid, IV Reglan I did resume some of patient's home medicines
[2019-09-03] MEDS: PROMETHAZINE HCL INJ 25 MG/1 ML VIAL IV PRN ×2 (16:11→21:29)
[2019-09-04] MEDS: METOCLOPRAMIDE HCL INJ/PF 10 MG/2 ML SDV IV SCH ×5 (00:50→23:54)
[2019-09-04] MEDS: MORPHINE SULFATE 10 MG/ML INJ IV PRN ×5 (04:01→23:54)
[2019-09-04 05:59] LABS: HEMATOCRIT 37.5 % (36.0-47.0); HEMOGLOBIN 12.7 g/dL (12.0-15.5); MEAN CORPUSCULAR HEMOGLOBIN 30.8 pg (27.0-33.4); MEAN CORPUSCULAR HGB CONC 33.9 g/dL (32.0-36.0); MEAN CORPUSCULAR VOLUME 91 fl (80-97); PLATELET COUNT 206 10^3/uL (150-450); RED BLOOD COUNT 4.12 10^6/uL (3.72-5.28); RED CELL DISTRIBUTION WIDTH 13.6 % (11.5-14.0); WHITE BLOOD COUNT 10.8 10^3/uL (4.0-10.5)
[2019-09-04] MEDS: HEPARIN SOD (PORCINE) 5,000 UNIT/ML 1 ML VIAL SUBCUT SCH ×3 (06:04→22:00)
[2019-09-04] MEDS: DEXTROSE 5%-LACTATED RINGERS 1,000 ML IV PRN ×2 (06:05→17:18)
[2019-09-04 06:21] LABS: BLOOD UREA NITROGEN 7 mg/dL (7-20); CALCIUM 8.5 mg/dL (8.4-10.2); CARBON DIOXIDE 28 mmol/L (22-30); CHLORIDE 101 mmol/L (98-107); GLUCOSE 148 mg/dL (75-110); POTASSIUM 3.4 mmol/L (3.6-5.0)
[2019-09-04 06:52] LABS: AMYLASE < 30 U/L (30-110); ANION GAP 3 (5-19)
--- NOTE | 2019-09-04 08:03 | RADIOLOGY REPORT (SQ) ---
EXAM DESCRIPTION: KUB/ABDOMEN (SINGLE VIEW) IMAGES COMPLETED DATE/TIME: 09/04/2019 7:29 am REASON FOR STUDY: ileus COMPARISON: CT 09/02/2019. Radiographs 09/03/2019. NUMBER OF VIEWS: One view. TECHNIQUE: Supine radiographic image of the abdomen acquired. LIMITATIONS: None. FINDINGS: BOWEL GAS PATTERN: The gas pattern looks abnormal, progressive. Distended loops of small bowel in the epigastrium with only minimal colonic gas noted. Degree of distention has slightly prog ressed. No significant gastric distention appreciated. CALCIFICATIONS: No suspicious calcifications. SOFT TISSUES: No gross mass or suggestion of organomegaly. HARDWARE: None in the abdomen. BONES: Osteopenic. OTHER: No other significant finding. IMPRESSION: 1. Progressive gaseous distention of small bowel loops. Reflective of worsening ileus or developing obstruction. TECHNICAL DOCUMENTATION: JOB ID: [id number] 2010 [employer]- All Rights Reserved Reading location - IP/workstation name: [email or web address]
[2019-09-04] MEDS ORDERED: PHARMACY COMMUNICATION ORDER MC NR (09:15)
[2019-09-04] MEDS ORDERED: GLUCAGON,HUMAN RECOMB 1 MG INJ SUBCUT PRN (09:15)
[2019-09-04] MEDS ORDERED: DEXTROSE 40% GEL 15 GM TUBE PO PRN ×2 (09:15)
[2019-09-04] MEDS ORDERED: DEXTROSE 50%-WATER 25 GM/50 ML DISP.SYRIN IV PRN ×2 (09:15)
[2019-09-04] MEDS: AMLODIPINE BESYLATE 2.5 MG TABLET PO SCH (09:16)
--- NOTE | 2019-09-04 09:43 | PDOC CONSULTATION ---
Consultation Consult Date: 09/04/19 Attending physician:: LAURA FISHMAN JR Provider Consulted: JOANNE COWAN Consult reason:: r/o sbo History of Present Illness Admission Date/PCP: 09/03/19 01:49 ZIYAD ZAZUETA NP History of Present Illness: SE DOMINGUEZ is a 79 year old female who re-presented to the emergency room with acute severe nausea and vomiting. She admits the onset of mild to moderate generalized colicky abdominal pain on the client development consultant of 09/02/2019. She was seen by in the ER, diagnosed with an adynamic ileus and was discharged to home with oral Bentyl and Zofran for outpatient treatment. After arriving home she took her first dose of Bentyl and began to suffer severe nausea with vomiting. Her vomiting has been intractable, not responding to Zofran. Her associated nonradiating colicky abdominal pain persists unchanged and she admits accompa nying anorexia. She denies other associated or accompanying signs and symptoms. She denies prior similar episodes. She has not identified any aggravating or ameliorating factors for her nausea and vomiting. In the emergency room she was found to have an adynamic ileus with a mild leukocytosis. She was subsequently admitted to the hospital for further evaluation treatment Past Medical History Cardiac Medical History: Reports: Hypertension Denies: Atrial Fibrillation, Congestive Heart Failure, Coronary Artery Disease, Myocardial Infarction, Hyperlipidema Pulmonary Medical History: Denies: Asthma, Bronchitis, Chronic Obstructive Pulmonary Disease (COPD), Pneumonia EENT Medical History: Denies: Cataracts, Ears - Hearing aids Neurological Medical History: Denies: Hemorrhagic CVA, Ischemic CVA, Seizures Endocrine Medical History: Denies: Diabetes Mellitus Type 1, Diabetes Mellitus Type 2, Hyperthyroidism, Hypothyroidism Renal/ Medical History: Denies: Chronic Kidney Disease, Nephrolithiasis Malignancy Medical History: Reports: None GI Medical History: Denies: Cirrhosis, Crohn's Disease, Hepatitis, Hiatal Hernia, Peptic Ulcer Disease, Ulcerative Colitis Musculoskeltal Medical History: Reports: Arthritis - Osteoarthritis involving the bilateral hands, neck & right hip Denies: Fibromyalgia, Gout Skin Medical History: Denies: Eczema, Psoriasis Psychiatric Medical History: Denies: Alcohol Dependency, Substance Abuse, Tobacco Dependency Traumatic Medical History: Reports: None Hematology: Denies: Anemia, Sickle Cell Disease Infectious Medical History: Reports: None Past Surgical History Past Surgical History: Reports: Appendectomy, Herniorrhaphy - Right inguinal hernia, Hip Replacement, Tubal Ligation Denies: Amputation, Hysterectomy, Mastectomy, Pacemaker Social History Lives with: Spouse/Significant other - Primary care provider for with dementia Smoking Status: Never Smoker Electronic Cigarette use?: No Last Time Smoked: 1969 Frequency of Alcohol Use: None Hx Recreational Drug Use: No Drugs: None Hx Prescription Drug Abuse: No - Advance Directive Resuscitation Status: Full Code Family History Family History: DM. denies: CAD, Hypertension, Malignancy Parental Family History Reviewed: No Children Family History Reviewed: NA Sibling(s) Family History Reviewed.: NA Medication/Allergy Home Medications: Amlodipine Besylate [Norvasc 2.5 mg Tablet] 2.5 mg PO DAILY #15 tablet 09/26/15 Cholecalciferol (Vitamin D3) [Vitamin D3 1000 Unit Tablet] 1,000 unit PO DAILY 09/03/19 Cyanocobalamin (Vitamin B-12) [Vitamin B-12 1000 Mcg Tablet] 1,000 mcg PO DAILY 09/03/19 Allergies/Adverse Reactions: No Known Allergies Allergy (Verified 02/28/16 07:48) Review of Systems Constitutional: PRESENT: fatigue, weight loss Eyes: ABSENT: as per HPI, visual disturbances, other Ears: ABSENT: as per HPI, hearing changes, other Nose, Mouth, and Throat: ABSENT: as per HPI, headache(s), mouth pain, sore throat, vertigo, other Breasts: ABSENT: as per HPI, other Cardiovascular: ABSENT: as per HPI, chest pain, dyspnea on exertion, edema, orthropnea, palpitations, other Respiratory: ABSENT: as per HPI, cough, dyspnea, hemoptysis, sputum, other Musculoskeletal: PRESENT: as per HPI Integumentary: ABSENT: as per HPI, diaphoresis, erythema, lesions, pruritus, ra sh, wounds, other Neurological: ABSENT: as per HPI, abnormal gait, abnormal movements, abnormal speech, confusion, convulsions, dizziness, focal weakness, frequent falls, lack of coordination, memory loss, numbness, paresthesias, restless legs, syncope, tingling, tremor(s), vertigo, weakness, other Endocrine: ABSENT: as per HPI, cold intolerance, flushing, heat intolerance, menstrual abnormalities, polydipsia, polyphagia, polyuria, other Hematologic/Lymphatic: ABSENT: as per HPI, easy bleeding, easy bruising, lymphadenopathy, other Allergic/Immunologic: ABSENT: as per HPI, seasonal rhinorrhea, other Physical Exam Vital Signs: Temp Pulse Resp BP Pulse Ox 98.6 F 53 L 12 128/50 H 95 09/04/19 07:31 09/04/19 07:31 09/04/19 07:31 09/04/19 07:31 09/04/19 07:31 Intake & Output 09/03/19 09/04/19 09/05/19 06:59 06:59 06:59 Intake Total 3322 Output Total 850 Balance 2472 Weight 49.1 kg 50 kg General appearance: PRESENT: no acute distress Head exam: PRESENT: normocephalic Eye exam: PRESENT: EOMI Ear exam: PRESENT: normal external ear exam Mouth exam: PRESENT: moist Neck exam: PRESENT: full ROM Respiratory exam: PRESENT: clear to auscultation [place] Cardiovascular exam: PRESENT: RRR Pulses: PRESENT: normal radial pulses, normal femoral pulses Vascular exam: PRESENT: normal capillary refill Breast: PRESENT: Normal GI/Abdominal exam: PRESENT: soft - flat, sl tympanitic sl tender rlq and suprapubic Rectal exam: PRESENT: deferred Extremities exam: PRESENT: full ROM Musculoskeletal exam: PRESENT: full ROM Neurological exam: PRESENT: alert, altered, awake, oriented to person Psychiatric exam: PRESENT: appropriate affect Skin exam: PRESENT: dry Results Laboratory Results: 09/04/19 05:14 09/04/19 05:14 09/03/19 09/03/19 09/04/19 10:44 10:44 05:14 WBC 13.6 H 10.8 H RBC 4.08 4.12 Hgb 12.7 D 12.7 Hct 37.1 37.5 MCV 91 91 MCH 31.0 30.8 MCHC 34.1 33.9 RDW 13.2 13.6 Plt Count 242 206 Seg Neutrophils % 88.0 H Sodium 134.0 L Potassium 3.9 Chloride 102 Carbon Dioxide 28 Anion Gap 4 L BUN 10 Creatinine 0.57 Est GFR ( Amer) > 60 Glucose 163 H Calcium 9.0 Magnesium Total Bilirubin 0.5 AST 17 Alkaline Phosphatase 37 L Total Protein 5.2 L Albumin 3.2 L Amylase Lipase 59.9 TSH 09/04/19 09/04/19 05:14 05:14 WBC RBC Hgb Hct MCV MCH MCHC RDW Plt Count Seg Neutrophils % Sodium 132.3 L Potassium 3.4 L Chloride 101 Carbon Dioxide 28 Anion Gap 3 L BUN 7 Creatinine 0.47 L Est GFR ( Amer) > 60 Glucose 148 H Calcium 8.5 Magnesium 1.6 Total Bilirubin AST Alkaline Phosphatase Total Protein Albumin Amylase < 30 L Lipase 29.2 TSH 1.82 Impressions: Abdomen X-Ray 09/02/19 23:56 IMPRESSION: Probable small bowel ileus as above. Follow-up recommended copyright 2011 [employer]- All Rights Reserved KUB X-Ray 09/04/19 07:00 IMPRESSION: 1. Progressive gaseous distention of small bowel loops. Reflective of worsening ileus or developing obstruction. 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
[2019-09-04] MEDS: FAMOTIDINE INJ/PF 20 MG/2 ML SDV IV SCH ×2 (10:31→21:59)
--- NOTE | 2019-09-04 11:23 | PDOC PROGRESS REPORT ---
Subjective Progress Note for:: 09/04/19 Reason For Visit: ILEUS 09/04/2019 She admitted on 09/02 with abdominal pain and a mild ileus Physical Exam Vital Signs: Temp Pulse Resp BP Pulse Ox 98.6 F 53 L 12 128/50 H 95 09/04/19 07:31 09/04/19 07:31 09/04/19 07:31 09/04/19 07:31 09/04/19 07:31 Intake & Output 09/03/19 09/04/19 09/05/19 06:59 06:59 06:59 Intake Total 3322 Output Total 850 Balance 2472 Weight 49.1 kg 50 kg General appearance: PRESENT: mild distress Respiratory exam: PRESENT: clear to auscultation [place]. ABSENT: rales, rhonchi, wheezes Cardiovascular exam: PRESENT: RRR. ABSENT: diastolic murmur, rubs, systolic murmur GI/Abdominal exam: PRESENT: diminished bowel sounds, tenderness Neurological exam: PRESENT: alert, awake, oriented to person, oriented to place, oriented to time, oriented to situation, CN II-XII grossly intact. ABSENT: motor sensory deficit Psychiatric exam: PRESENT: appropriate affect, normal mood. ABSENT: homicidal i deation, suicidal ideation Results Laboratory Results: 09/04/19 05:14 09/04/19 05:14 09/03/19 09/03/19 09/04/19 10:44 10:44 05:14 WBC 13.6 H 10.8 H RBC 4.08 4.12 Hgb 12.7 D 12.7 Hct 37.1 37.5 MCV 91 91 MCH 31.0 30.8 MCHC 34.1 33.9 RDW 13.2 13.6 Plt Count 242 206 Seg Neutrophils % 88.0 H Sodium 134.0 L Potassium 3.9 Chloride 102 Carbon Dioxide 28 Anion Gap 4 L BUN 10 Creatinine 0.57 Est GFR ( Amer) > 60 Glucose 163 H Calcium 9.0 Magnesium Total Bilirubin 0.5 AST 17 Alkaline Phosphatase 37 L Total Protein 5.2 L Albumin 3.2 L Amylase Lipase 59.9 TSH 09/04/19 09/04/19 05:14 05:14 WBC RBC Hgb Hct MCV MCH MCHC RDW Plt Count Seg Neutrophils % Sodium 132.3 L Potassium 3.4 L Chloride 101 Carbon Dioxide 28 Anion Gap 3 L BUN 7 Creatinine 0.47 L Est GFR ( Amer) > 60 Glucose 148 H Calcium 8.5 Magnesium 1.6 Total Bilirubin AST Alkaline Phosphatase Total Protein Albumin Amylase < 30 L Lipase 29.2 TSH 1.82 Impressions: Abdomen X-Ray 09/02/19 23:56 IMPRESSION: Probable small bowel ileus as above. Follow-up recommended copyright 2010 [employer]- All Rights Reserved KUB X-Ray 09/04/19 07:00 IMPRESSION: 1. Progressive gaseous distention of small bowel loops. Reflective of worsening ileus or developing obstruction. Assessment and Plan - Diagnosis (1) Adynamic ileus Is this a current diagnosis for this admission?: Yes (2) Essential hypertension Is this a current diagnosis for this admission?: Yes (3) Nausea and vomiting Qualifiers: Vomiting type: unspecified Vomiting Intractability: unspecified Qualified Code(s): R11.2 - Nausea with vomiting, unspecified Is this a current diagnosis for this admission?: Yes (4) Abdominal pain Qualifiers: Abdominal location: generalized Qualified Code(s): R10.84 - Generalized abdominal pain Is this a current diagnosis for this admission?: Yes - Plan Summary Summary: Patient is admitted to the medical floor where she will receive routine supportive and symptomatic cares. She will be treated with IV fluids and IV antiemetics utilizing Reglan. She will be started on a clear liquid diet and advanced to a cardiac diet as tolerated. Her amlodipine will be restarted for her hypertension when she is able to tolerate oral medications, until that time she will be treated with hydralazine 20 mg IV every 4 hours as needed. She will use morphine sulfate 2 to 4 mg IV every 2 hours as needed for pain control and Ativan 1 mg IV every 4 hours as needed for anxiety or restlessness. CBCs, metabolic profiles and magnesium levels will be obtained as appropriate. 09/04/2019 Temperature 98.5 pulse is around 60 blood pressure appears stable White blood cell count is down to 10.8 lipase is down to 29 KUB shows slight worsening of her ileus Patient is more tender to palpation today in the lower abdomen right lower quadrant seems to be the worse Bowel sounds are hypoactive patient is also complaining of some back pain on the right flank I am going to repeat a UA this morning She has been seen by general surgery and is recommended a small bowel series Continue n.p.o. I have explained all this to the patient and she seems satisfied - Time Time Spent with patient: 25-34 minutes
--- NOTE | 2019-09-04 18:45 | RADIOLOGY REPORT (SQ) ---
EXAM DESCRIPTION: SMALL BOWEL SERIES IMAGES COMPLETED DATE/TIME: 09/04/2019 4:28 pm REASON FOR STUDY: sbo COMPARISON: Abdomen KUB, same date. Abdomen KUB, 09/03/2019. CT abdomen and pelvis, 09/02/2019. FLUOROSCOPY TIME: 4 images saved to PACS. LIMITATIONS: None. PROCEDURE: Initial balance truer image of abdomen acquired, followed by administration of oral contrast. Se rial radiographic images acquired. Fluoroscopic images recorded of the terminal ileum and other bianka cated areas. All images stored on PACS. FINDINGS: [employer] KUB: Multiple gas-filled dilated stacked loops of small bowel are seen on the balance truer radiograph, suggestive of bowel obstruction. STOMACH: Still images after ingestion of oral Gastrografin were obtained. Immediate images demonstra te Gastrografin within the gastric lumen predominantly in the fundus of the stomach. There is a smal l gastric diverticulum at the gastric fundus. Normal contour of the stomach. On 2 hour in 6 hour de layed images, there is very dilute Gastrografin contrast opacifying the small bowel. This does not g et to the distal small bowel or colon at 6 hours. DUODENUM: Normal mucosal pattern with adequate distention. No displacement or obstruction. JEJUNUM: Normal mucosal pattern. Diffusely dilated loops of jejunum without focal transition. No de finite masses. ILEUM: Contrast does not extend ileum. TERMINAL ILEUM AND ILEO-CECAL VALVE: Contrast does not extend to the terminal ileum or ileocecal valv e. PROXIMAL COLON: Incompletely imaged. No abnormality. OTHER: No other significant finding. IMPRESSION: Small bowel obstruction with delayed contrast movement into the jejunum. COMMENT: Quality ID [id number]: Final reports for procedures using fluoroscopy that document radiation exp osure indices, or exposure time and number of fluorographic images (if radiation exposure indices are not available) TECHNICAL DOCUMENTATION: JOB ID: [id number] 2010 [email or web address]- All Rights Reserved Reading location - IP/workstation name: [email or web address]
[2019-09-04 19:11] LABS: APPEARANCE,URINE SLIGHTLY-CLOUDY; BILIRUBIN,URINE NEGATIVE (NEGATIVE); COLOR,URINE YELLOW; GLUCOSE, URINE 50 mg/dL (NEGATIVE); KETONES,URINE TRACE mg/dL (NEGATIVE); PROTEIN,URINE NEGATIVE (NEGATIVE); URINE SPECIFIC GRAVITY 1.011; UROBILINOGEN,URINE NEGATIVE mg/dL (<2.0)
--- NOTE | 2019-09-04 21:10 | RADIOLOGY REPORT (SQ) ---
EXAM DESCRIPTION: CLINICAL HISTORY: 79 years Female ,check NG tube placement COMPARISON: 09/04/2019 TECHNIQUE: Single view of the abdomen was provided.. FINDINGS: Upper abdomen is not included. Nasogastric tube in the gastric body. There is residual contrast noted in stomach and small bowel. There is moderate distention of loops of small bowel in a pattern unchanged the previous suggesting obstruction. IMPRESSION: Nasogastric tube in the gastric body Moderate distention of small bowel which may reflect obstruction. Generalized ileus not excluded. Recommend continued follow-up
[2019-09-05] MEDS: DEXTROSE 5%-LACTATED RINGERS 1,000 ML IV PRN ×2 (03:20→17:13)
[2019-09-05 04:36] LABS: HEMATOCRIT 39.8 % (36.0-47.0); HEMOGLOBIN 13.8 g/dL (12.0-15.5); MEAN CORPUSCULAR HEMOGLOBIN 31.3 pg (27.0-33.4); MEAN CORPUSCULAR HGB CONC 34.6 g/dL (32.0-36.0); MEAN CORPUSCULAR VOLUME 90 fl (80-97); PLATELET COUNT 218 10^3/uL (150-450); RED CELL DISTRIBUTION WIDTH 13.1 % (11.5-14.0); WHITE BLOOD COUNT 14.5 10^3/uL (4.0-10.5)
[2019-09-05] MEDS: HEPARIN SOD (PORCINE) 5,000 UNIT/ML 1 ML VIAL SUBCUT SCH ×2 (06:08→13:26)
[2019-09-05] MEDS: METOCLOPRAMIDE HCL INJ/PF 10 MG/2 ML SDV IV SCH ×3 (06:09→17:13)
--- NOTE | 2019-09-05 08:10 | RADIOLOGY REPORT (SQ) ---
EXAM DESCRIPTION: KUB/ABDOMEN (SINGLE VIEW) IMAGES COMPLETED DATE/TIME: 09/05/2019 8:00 am REASON FOR STUDY: sbo COMPARISON: 09/04/2019 NUMBER OF VIEWS: One view. TECHNIQUE: Supine radiographic image of the abdomen acquired. LIMITATIONS: None. FINDINGS: BOWEL GAS PATTERN: Persistent central abdominal gaseous distension of small bowel loops. Potentially minimally improved. CALCIFICATIONS: No suspicious calcifications. SOFT TISSUES: No gross mass or suggestion of organomegaly. HARDWARE: Nasogastric tube down, tip appropriately positioned. BONES: No acute fracture. No worrisome bone lesions. OTHER: No other significant finding. IMPRESSION: Persistent small bowel distention may be slightly improved compared to yesterday. Appro priate nasogastric tube. TECHNICAL DOCUMENTATION: JOB ID: [id number] 2010 [employer]- All Rights Reserved Reading location - IP/workstation name: [email or web address]
[2019-09-05] MEDS: AMLODIPINE BESYLATE 2.5 MG TABLET PO SCH (09:11)
[2019-09-05] MEDS: FAMOTIDINE INJ/PF 20 MG/2 ML SDV IV SCH ×2 (09:16→22:00)
--- NOTE | 2019-09-05 12:10 | PDOC PROGRESS REPORT ---
Subjective Progress Note for:: 09/05/19 Reason For Visit: ILEUS 09/05/19 Patient admitted for abdominal pain and ileus, vomiting Physical Exam Vital Signs: Temp Pulse Resp BP Pulse Ox 98.2 F 67 20 132/46 H 96 09/05/19 07:57 09/05/19 07:57 09/05/19 07:57 09/05/19 07:57 09/05/19 07:57 Intake & Output 09/04/19 09/05/19 09/06/19 06:59 06:59 06:59 Intake Total 3322 2000 Output Total 850 3750 Balance 2472 -1750 Weight 50 kg 50 kg General appearance: PRESENT: mild distress Respiratory exam: PRESENT: clear to auscultation [place]. ABSENT: rales, rhonchi, wheezes Cardiovascular exam: PRESENT: RRR. ABSENT: diastolic murmur, rubs, systolic murmur GI/Abdominal exam: PRESENT: hypoactive bowel sounds - Less tenderness today than yesterday. Still more so right lower quadrant, tenderness, other Neurological exam: PRESENT: alert, awake, oriented to person, oriented to place, oriented to time, oriented to situation, CN II-XII grossly intact. ABSENT: motor sensory deficit Psychiatric exam: PRESENT: appropriate affect, normal mood. ABSENT: homicidal ideation, suicidal ideation Results Laboratory Results: 09/05/19 04:12 09/04/19 05:14 09/04/19 09/05/19 18:40 04:12 WBC 14.5 H RBC 4.40 Hgb 13.8 Hct 39.8 MCV 90 MCH 31.3 MCHC 34.6 RDW 13.1 Plt Count 218 Urine Color YELLOW Urine Appearance SLIGHTLY-CLOUDY Urine pH 8.0 Ur Specific [place] 1.011 Urine Protein NEGATIVE Urine Glucose (UA) 50 H Urine Ketones TRACE H Urine Blood SMALL H Urine RBC (Auto) 1 Impressions: Abdomen X-Ray 09/02/19 23:56 IMPRESSION: Probable small bowel ileus as above. Follow-up recommended copyright 2010 [employer]- All Rights Reserved Small Bowel X-Ray 09/04/19 00:00 IMPRESSION: Small bowel obstruction with delayed contrast movement into the jejunum. KUB X-Ray 09/05/19 00:00 IMPRESSION: Persistent small bowel distention may be slightly improved compared to yesterday. Appropriate nasogastric tube. Assessment and Plan - Diagnosis (1) Adynamic ileus Is this a current diagnosis for this admission?: Yes (2) Essential hypertension Is this a current diagnosis for this admission?: Yes (3) Nausea and vomiting Qualifiers: Vomiting type: unspecified Vomiting Intractability: unspecified Qualified Code(s): R11.2 - Nausea with vomiting, unspecified Is this a current diagnosis for this admission?: Yes (4) Abdominal pain Qualifiers: Abdominal location: generalized Qualified Code(s): R10.84 - Generalized abdominal pain Is this a current diagnosis for this admission?: Yes - Plan Summary Summary: Patient is admitted to the medical floor where she will receive routine supportive and symptomatic cares. She will be treated with IV fluids and IV antiemetics utilizing Reglan. She will be started on a clear liquid diet and advanced to a cardiac diet as tolerated. Her amlodipine will be restarted for her hypertension when she is able to tolerate oral medications, until that time she will be treated with hydralazine 20 mg IV every 4 hours as needed. She will use morphine sulfate 2 to 4 mg IV every 2 hours as needed for pain control and Ativan 1 mg IV every 4 hours as needed for anxiety or restlessness. CBCs, metabolic profiles and magnesium levels will be obtained as appropriate. 09/04/2019 Temperature 98.5 pulse is around 60 blood pressure appears stable White blood cell count is down to 10.8 lipase is down to 29 KUB shows slight worsening of her ileus Patient is more tender to palpation today in the lower abdomen right lower quadrant seems to be the worse Bowel sounds are hypoactive patient is also complaining of some back pain on the right flank I am going to repeat a UA this morning She has been seen by general surgery and is recommended a small bowel series Continue n.p.o. I have explained all this to the patient and she seems satisfied 09/05/2019 NG-tube in place, according to nursing it has drained 1350, since sometime yesterday evening Patient has had no further vomiting Patient is less tender today to palpation White blood cell count is still slightly elevated at 14.5, patient is on no antibiotics IV fluids running at 100/h Small bowel series was performed yesterday and KUB was done this morning. Surgery to see patient and make decision concerning treatment plan. I called patient's daughter yesterday evening and discussed patient's current situation at that time. I told her I would call her back when I had more information, , [place]. - Time Time Spent with patient: 35 or more minutes
[2019-09-05] MEDS: MORPHINE SULFATE 10 MG/ML INJ IV PRN ×2 (13:26→20:50)
--- NOTE | 2019-09-05 16:08 | PDOC PROGRESS REPORT ---
Subjective Progress Note for:: 09/05/19 Subjective:: This is an 79-year-old female admitted with ileus versus small bowel obstruction. The patient had a small bowel series yesterday, showing failure of progression of oral contrast. Subsequently, an NG tube was placed for decompression. Today, the patient denies any nausea, vomiting, abdominal pain, headache, fevers, chills, dizziness, orthostasis. Reason For Visit: ILEUS Physical Exam Vital Signs: Temp Pulse Resp BP Pulse Ox 97.9 F 62 16 132/45 H 96 09/05/19 10:54 09/05/19 10:54 09/05/19 10:54 09/05/19 10:54 09/05/19 10:54 Intake & Output 09/04/19 09/05/19 09/06/19 06:59 06:59 06:59 Intake Total 3322 2000 260 Output Total 850 3750 1000 Balance 5322 -8190 -740 Weight 50 kg 50 kg General appearance: PRESENT: no acute distress, cooperative Head exam: PRESENT: atraumatic, normocephalic Eye exam: PRESENT: EOMI, PERRLA. ABSENT: scleral icterus Mouth exam: PRESENT: moist, neck supple Neck exam: ABSENT: meningismus, tenderness, thyromegaly, tracheal deviation Respiratory exam: PRESENT: unlabored. ABSENT: chest wall tenderness, tachypnea, wheezes Cardiovascular exam: ABSENT: tachycardia GI/Abdominal exam: PRESENT: distended - Mild, soft. ABSENT: guarding, rebound, rigid, tenderness Rectal exam: PRESENT: deferred Extremities exam: ABSENT: clubbing Musculoskeletal exam: ABSENT: deformity Neurological exam: PRESENT: alert, awake, oriented to person, oriented to place, oriented to time, oriented to situation, CN II-XII grossly intact Psychiatric exam: ABSENT: agitated, anxious, depressed Focused psych exam: ABSENT: delusional Skin exam: ABSENT: cyanosis, erythema, jaundice Results Laboratory Results: 09/05/19 04:12 09/04/19 05:14 09/04/19 09/05/19 18:40 04:12 WBC 14.5 H RBC 4.40 Hgb 13.8 Hct 39.8 MCV 90 MCH 31.3 MCHC 34.6 RDW 13.1 Plt Count 218 Urine Color YELLOW Urine Appearance SLIGHTLY-CLOUDY Urine pH 8.0 Ur Specific [place] 1.011 Urine Protein NEGATIVE Urine Glucose (UA) 50 H Urine Ketones TRACE H Urine Blood SMALL H Urine RBC (Auto) 1 Impressions: Abdomen X-Ray 09/02/19 23:56 IMPRESSION: Probable small bowel ileus as above. Follow-up recommended copyright 2010 [employer]- All Rights Reserved Small Bowel X-Ray 09/04/19 00:00 IMPRESSION: Small bowel obstruction with delayed contrast movement into the jejunum. KUB X-Ray 09/05/19 00:00 IMPRESSION: Persistent small bowel distention may be slightly improved compared to yesterday. Appropriate nasogastric tube. Assessment & Plan - Diagnosis (1) Small bowel obstruction Is this a current diagnosis for this admission?: Yes - Plan Summary Plan Summary: This is an 79-year-old female with a small bowel series concerning for small bowel obstruction. She does have a remote history of abdominal surgery. 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 I garibay ve discussed operative and nonoperative management strategies with the patient. At this time, she wishes to continue with NG decompression and a watchful waiting approach. She is not yet ready to consent for surgical exploration. I will reevaluate her tomorrow morning. At this time, she has no sign of peritonitis, or developing/ongoing abdominal catastrophe. Surgery will continue to follow her very closely with you.
[2019-09-06] MEDS: METOCLOPRAMIDE HCL INJ/PF 10 MG/2 ML SDV IV SCH ×4 (00:39→18:49)
[2019-09-06] MEDS: HEPARIN SOD (PORCINE) 5,000 UNIT/ML 1 ML VIAL SUBCUT SCH ×4 (00:40→21:45)
[2019-09-06 05:19] LABS: HEMATOCRIT 37.8 % (36.0-47.0); HEMOGLOBIN 13.2 g/dL (12.0-15.5); MEAN CORPUSCULAR HEMOGLOBIN 31.5 pg (27.0-33.4); MEAN CORPUSCULAR VOLUME 90 fl (80-97); PLATELET COUNT 204 10^3/uL (150-450); RED CELL DISTRIBUTION WIDTH 13.3 % (11.5-14.0); WHITE BLOOD COUNT 9.3 10^3/uL (4.0-10.5)
[2019-09-06 09:06] LABS: BLOOD UREA NITROGEN 9 mg/dL (7-20); CALCIUM 8.7 mg/dL (8.4-10.2); GLUCOSE 131 mg/dL (75-110); POTASSIUM 3.1 mmol/L (3.6-5.0)
[2019-09-06 09:11] LABS: ANION GAP 5 (5-19); CARBON DIOXIDE 32 mmol/L (22-30); CHLORIDE 95 mmol/L (98-107)
[2019-09-06 09:13] LABS: AMYLASE < 30 U/L (30-110)
[2019-09-06] MEDS ORDERED: PHENYLEPHRINE HCL INJ/PF 10 MG/1 ML SDV ONE (09:19)
[2019-09-06] MEDS ORDERED: SUCCINYLCHOLINE CHLORIDE INJ 200 MG/10 ML VIAL ONE (09:19)
[2019-09-06] MEDS ORDERED: ROCURONIUM BROMIDE INJ 50 MG/5 ML VIAL IV ONE (09:19)
--- NOTE | 2019-09-06 09:20 | RADIOLOGY REPORT (SQ) ---
EXAM DESCRIPTION: KUB/ABDOMEN (SINGLE VIEW) IMAGES COMPLETED DATE/TIME: 09/06/2019 8:22 am REASON FOR STUDY: sbo COMPARISON: None. NUMBER OF VIEWS: One view. TECHNIQUE: Supine radiographic image of the abdomen acquired. LIMITATIONS: None. FINDINGS: BOWEL GAS PATTERN: Persistent dilated loops of small bowel within the central abdomen obinna uring up to 4.3 cm compatible with small bowel obstruction. Some gas noted throughout the distal col on. CALCIFICATIONS: No suspicious calcifications. Scattered pelvic phleboliths. SOFT TISSUES: No gross mass or suggestion of organomegaly. HARDWARE: Nasoenteric tube tip overlies gastric body. Partially visualized right hip total arthropla sty. BONES: No acute fracture. No worrisome bone lesions. OTHER: No other significant finding. IMPRESSION: 1. Persistent dilated loops of small bowel throughout the central abdomen measuring up to 4.3 cm compatible with obstruction, similar to prior 2. Nasoenteric tube tip overlies gastric body. TECHNICAL DOCUMENTATION: JOB ID: [id number] 2010 [employer]- All Rights Reserved Reading location - IP/workstation name: [email or web address]
[2019-09-06] MEDS: AMLODIPINE BESYLATE 2.5 MG TABLET PO SCH (09:29)
[2019-09-06] MEDS: FAMOTIDINE INJ/PF 20 MG/2 ML SDV IV SCH ×2 (09:45→21:44)
--- NOTE | 2019-09-06 11:09 | PDOC PROGRESS REPORT ---
Subjective Subjective:: This is an 79-year-old female admitted with a small bowel obstruction. The patient had a small bowel series, showing failure of progression of oral contrast. Her NG output remains high. Today, the patient denies any nausea, vomiting, abdominal pain, headache, fevers, chills, dizziness, orthostasis. Reason For Visit: ILEUS Physical Exam Vital Signs: Temp Pulse Resp BP Pulse Ox 99.2 F 77 16 135/43 H 97 09/06/19 07:31 09/06/19 07:31 09/06/19 07:31 09/06/19 07:31 09/06/19 07:31 Intake & Output 09/05/19 09/06/19 09/07/19 06:59 06:59 06:59 Intake Total 1999 1520 Output Total 3750 2150 1400 Balance -1750 -630 -1400 Weight 50 kg 48.3 kg General appearance: PRESENT: no acute distress, cooperative Head exam: PRESENT: atraumatic, normocephalic Eye exam: PRESENT: EOMI, PERRLA Mouth exam: PRESENT: moist, neck supple Neck exam: ABSENT: tenderness, thyromegaly, tracheal deviation Respiratory exam: PRESENT: unlabored. ABSENT: tachypnea, wheezes Cardiovascular exam: ABSENT: tachycardia GI/Abdominal exam: PRESENT: distended - Mild, soft. ABSENT: guarding, rigid, tenderness Rectal exam: PRESENT: deferred Extremities exam: ABSENT: clubbing Musculoskeletal exam: ABSENT: deformity Neurological exam: PRESENT: alert, awake, oriented to person, oriented to place, oriented to time, oriented to situation Psychiatric exam: ABSENT: agitated, anxious, depressed Focused psych exam: ABSENT: delusional Skin exam: ABSENT: cyanosis, erythema, jaundice Results Laboratory Results: 09/06/19 04:58 09/06/19 04:58 09/06/19 09/06/19 04:58 04:58 WBC 9.3 RBC 4.20 Hgb 13.2 Hct 37.8 MCV 90 MCH 31.5 MCHC 35.0 RDW 13.3 Plt Count 204 Sodium 131.6 L Potassium 3.1 L Chloride 95 L Carbon Dioxide 32 H Anion Gap 5 BUN 9 Creatinine 0.52 Est GFR ( Amer) > 60 Glucose 131 H Calcium 8.7 Amylase < 30 L Lipase 37.3 Impressions: Abdomen X-Ray 09/02/19 23:56 IMPRESSION: Probable small bowel ileus as above. Follow-up recommended copyright 2010 [employer]- All Rights Reserved Small Bowel X-Ray 09/04/19 00:00 IMPRESSION: Small bowel obstruction with delayed contrast movement into the jej unum. KUB X-Ray 09/06/19 00:00 IMPRESSION: 1. Persistent dilated loops of small bowel throughout the central abdomen measuring up to 4.3 cm compatible with obstruction, similar to prior 2. Nasoenteric tube tip overlies gastric body. Assessment & Plan - Diagnosis (1) Small bowel obstruction Is this a current diagnosis for this admission?: Yes - Plan Summary Plan Summary: This is an 79-year-old female with a small bowel series concerning for small bowel obstruction. She does have a remote history of abdominal surgery. 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 Her x-rays today continue to be consistent with ongoing small bowel obstruction. I have again discussed operative and nonoperative management strategies with the patient. She is now ready to consent to surgical exploration. I have reviewed the risks and benefits of surgery with her. Informed consent was obtained, and all of her questions were answered.
[2019-09-06] MEDS: DEXTROSE 5%-LACTATED RINGERS 1,000 ML IV PRN ×2 (13:47→18:48)
[2019-09-06] MEDS: MORPHINE SULFATE 10 MG/ML INJ IV PRN (14:05)
[2019-09-06] MEDS ORDERED: MIDAZOLAM 2 MG/2 ML INJ ONE (15:03)
[2019-09-06] MEDS ORDERED: MORPHINE SULFATE 10 MG/ML INJ ONE (15:03)
[2019-09-06] MEDS ORDERED: PROPOFOL INJ 200 MG/20 ML VIAL IV ONE (15:03)
[2019-09-06] MEDS ORDERED: FENTANYL CITRATE INJ/PF 100 MCG/2 ML AMPUL ONE (15:03)
--- NOTE | 2019-09-06 15:11 | PDOC PROGRESS REPORT ---
Subjective Progress Note for:: 09/06/19 Reason For Visit: SMALL BOWEL OBSTRUCTION 09/06/2019 Abdominal pain, small bowel obstruction Physical Exam Vital Signs: Temp Pulse Resp BP Pulse Ox 99.2 F 77 16 135/43 H 97 09/06/19 07:31 09/06/19 07:31 09/06/19 07:31 09/06/19 07:31 09/06/19 07:31 Intake & Output 09/05/19 09/06/19 09/07/19 06:59 06:59 06:59 Intake Total 19990 Output Total 3750 2150 1400 Balance -1750 370 -1400 Weight 50 kg 48.3 kg General appearance: PRESENT: mild distress Respiratory exam: PRESENT: clear to auscultation [place]. ABSENT: rales, rhonchi, wheezes Cardiovascular exam: PRESENT: RRR. ABSENT: diastolic murmur, rubs, systolic murmur Neurological exam: PRESENT: alert, awake, oriented to person, oriented to place, oriented to time, oriented to situation, CN II-XII grossly intact. ABSENT: motor sensory deficit Psychiatric exam: PRESENT: flat affect Results Laboratory Results: 09/06/19 04:58 09/06/19 04:58 09/06/19 09/06/19 04:58 04:58 WBC 9.3 RBC 4.20 Hgb 13.2 Hct 37.8 MCV 90 MCH 31.5 MCHC 35.0 RDW 13.3 Plt Count 204 Sodium 131.6 L Potassium 3.1 L Chloride 95 L Carbon Dioxide 32 H Anion Gap 5 BUN 9 Creatinine 0.52 Est GFR ( Amer) > 60 Glucose 131 H Calcium 8.7 Amylase < 30 L Lipase 37.3 Impressions: Abdomen X-Ray 09/02/19 23:56 IMPRESSION: Probable small bowel ileus as above. Follow-up recommended copyright 2010 [employer]- All Rights Reserved Small Bowel X-Ray 09/04/19 00:00 IMPRESSION: Small bowel obstruction with delayed contrast movement into the jejunum. KUB X-Ray 09/06/19 00:00 IMPRESSION: 1. Persistent dilated loops of small bowel throughout the central abdomen measuring up to 4.3 cm compatible with obstruction, similar to prior 2. Nasoenteric tube tip overlies gastric body. Assessment and Plan - Diagnosis (1) Adynamic ileus Is this a current diagnosis for this admission?: Yes (2) Essential hypertension Is this a current diagnosis for this admission?: Yes (3) Nausea and vomiting Qualifiers: Vomiting type: unspecified Vomiting Intractability: unspecified Qualified Code(s): R11.2 - Nausea with vomiting, unspecified Is this a current diagnosis for this admission?: Yes (4) Abdominal pain Qualifiers: Abdominal location: generalized Qualified Code(s): R10.84 - Generalized abdominal pain Is this a current diagnosis for this admission?: Yes (5) Small bowel obstruction Is this a current diagnosis for this admission?: Yes - Plan Summary Summary: Patient is admitted to the medical floor where she will receive routine supportive and symptomatic cares. She will be treated with IV fluids and IV antiemetics utilizing Reglan. She will be started on a clear liquid diet and advanced to a cardiac diet as tolerated. Her amlodipine will be restarted for her hypertension when she is able to tolerate oral medications, until that time she will be treated with hydralazine 20 mg IV every 4 hours as needed. She will use morphine sulfate 2 to 4 mg IV every 2 hours as needed for pain control and Ativan 1 mg IV every 4 hours as needed for anxiety or restlessness. CBCs, metabolic profiles and magnesium levels will be obtained as appropriate. 09/04/2019 Temperature 98.5 pulse is around 60 blood pressure appears stable White blood cell count is down to 10.8 lipase is down to 29 KUB shows slight worsening of her ileus Patient is more tender to palpation today in the lower abdomen right lower quadrant seems to be the worse Bowel sounds are hypoactive patient is also complaining of some back pain on the right flank I am going to repeat a UA this morning She has been seen by general surgery and is recommended a small bowel series Continue n.p.o. I have explained all this to the patient and she seems satisfied 09/05/2019 NG-tube in place, according to nursing it has drained 1350, since sometime yesterday evening Patient has had no further vomiting Patient is less tender today to palpation White blood cell count is still slightly elevated at 14.5, patient is on no antibiotics IV fluids running at 100/h Small bowel series was performed yesterday and KUB was done this morning. Surgery to see patient and make decision concerning treatment plan. I called patient's daughter yesterday evening and discussed patient's current situation at that time. I told her I would call her back when I had more information, , Lexus. 09/06/2019 Temp 99 2 pulse 77 blood pressure 135/43 O2 sat 97% on room air Patient's white count is come down to 9.3 Potassium is trended down slightly to 3.1, I am ordering a stat K riders now, since pt is going to [place] She has failed with conservative therapy, n.p.o., NG tube Patient scheduled for surgery today - Time Time Spent with patient: 15-24 minutes
[2019-09-06] MEDS ORDERED: POTASSI CL 20 MEQ/50 ML RIDER 20 MEQ/50 ML RTUPB IV ONE ×2 (15:15→18:00)
[2019-09-06] MEDS ORDERED: BUPIVACAINE HCL 0.25 % INJ/PF (2.5 MG/1 ML) 30 ML VIAL ONE (15:17)
[2019-09-06] MEDS ORDERED: CEFAZOLIN INJ 1 GM VIAL ONE (15:34)
[2019-09-06] MEDS ORDERED: POTASSI CL 20 MEQ/50 ML RIDER 20 MEQ/50 ML RTUPB IV SCH (16:00)
[2019-09-06] MEDS ORDERED: SUGAMMADEX SODIUM 200 MG/2 ML SDV IV ONE (16:34)
[2019-09-07] MEDS: METOCLOPRAMIDE HCL INJ/PF 10 MG/2 ML SDV IV SCH ×5 (00:08→23:09)
[2019-09-07] MEDS: DEXTROSE 5%-LACTATED RINGERS 1,000 ML IV PRN (03:33)
[2019-09-07] MEDS: HEPARIN SOD (PORCINE) 5,000 UNIT/ML 1 ML VIAL SUBCUT SCH ×3 (05:44→21:30)
--- NOTE | 2019-09-07 06:03 | Operative Report ---
Nonrecallable Operative Report DATE OF SURGERY: 09/06/19 PREOPERATIVE DIAGNOSIS: Small bowel obstruction POSTOPERATIVE DIAGNOSIS: Small bowel obstruction caused by intra-abdominal adhesions, creating an internal hernia OPERATION: 1. Exploratory laparoscopy. 2. Laparoscopic lysis of adhesions. 3. Reduction of internal hernia SURGEON: REBECA ANDERSON ANESTHESIA: GA TISSUE REMOVED OR ALTERED: None COMPLICATIONS: None apparent ESTIMATED BLOOD LOSS: Minimal PROCEDURE: Drains/implants: None. Procedure in detail: After informed consent was obtained, the patient was brought to the operating room and laid in the supine position. The area of the abdomen was prepped and draped in a normal sterile fashion. Left upper quadrant incision was created. The 5 mm trocar and 5 mm camera were inserted using the Optiview technique. Gas insufflation was attached, and pneumoperitoneum was achieved. Next a left lower quadrant 12 mm trocar was placed, as well as a suprapubic 5 mm trocar. This was done under direct laparoscopic visualization. The abdomen was surveyed. There were adhesions in the right lower quadrant, related to a previous appendectomy. There was a portion of small bowel that was stuck within the group of adhesions, causing a bowel obstruction. There was a portion of the small bowel that was herniated through a small opening. This was released. The obstruction was then relieved. The adhesions were taken down completely in this area. Next the small bowel was run to ensure there were no other areas of obstruction. Next, attention was turned to closure of the 12 mm trocar defect. This was performed using the Geoffrey-Raphael device and 0 Vicryl suture in [id number] fashion. Pneumoperitoneum was relieved, using a filtration system. Once this was complete, the 5 mm trochars were removed. The overlying skin was closed using 4-0 Vicryl Rapide suture in subcuticular fashion. Dressings were placed, and the procedure was concluded. All sponge, instrument, and needle counts were correct x2. Condition: Stable.
[2019-09-07] MEDS: MORPHINE SULFATE 10 MG/ML INJ IV PRN ×3 (08:37→23:09)
[2019-09-07] MEDS: FAMOTIDINE INJ/PF 20 MG/2 ML SDV IV SCH ×2 (09:39→21:30)
--- NOTE | 2019-09-07 10:23 | PDOC PROGRESS REPORT ---
Subjective Progress Note for:: 09/07/19 Subjective:: Feels okay. Still having some abdominal pain but somewhat different from preop. Reason For Visit: SMALL BOWEL OBSTRUCTION Physical Exam Vital Signs: Temp Pulse Resp BP Pulse Ox 98.2 F 65 16 142/51 H 100 09/07/19 08:00 09/07/19 08:00 09/07/19 08:00 09/07/19 08:00 09/07/19 08:00 Intake & Output 09/06/19 09/07/19 09/08/19 06:59 06:59 06:59 Intake Total 2520 2177 Output Total 2150 2480 Balance 370 -303 Weight 48.3 kg 51 kg General appearance: PRESENT: no acute distress, cooperative Respiratory exam: PRESENT: clear to auscultation [place] Cardiovascular exam: PRESENT: RRR GI/Abdominal exam: PRESENT: other - Soft, moderately distended, mild diffuse abdominal tenderness without peritoneal signs. NG output is bile tinged. Results Laboratory Results: 09/06/19 04:58 09/06/19 04:58 Impressions: Abdomen X-Ray 09/02/19 23:56 IMPRESSION: Probable small bowel ileus as above. Follow-up recommended copyright 2010 [employer]- All Rights Reserved Small Bowel X-Ray 09/04/19 00:00 IMPRESSION: Small bowel obstruction with delayed contrast movement into the jejunum. KUB X-Ray 09/06/19 00:00 IMPRESSION: 1. Persistent dilated loops of small bowel throughout the central abdomen measuring up to 4.3 cm compatible with obstruction, similar to prior 2. Nasoenteric tube tip overlies gastric body. Assessment & Plan - Diagnosis (1) Small bowel obstruction Is this a current diagnosis for this admission?: Yes Plan: Status post laparoscopic lysis of adhesions. Patient appears reasonably well. Await bowel function. Keep NG tube in for now. DC Ashton and ambulate patient. Recheck chemistries to make sure her hypokalemia has been corrected.
--- NOTE | 2019-09-07 10:44 | PDOC PROGRESS REPORT ---
Subjective Progress Note for:: 09/07/19 Subjective:: 79 year old female who re-presented to the emergency room with acute severe nausea and vomiting. 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 She was seen by in the ER, diagnosed with an adynamic ileus and was discharged to home with oral Bentyl and Zofran for outpatient treatment. After arriving home she took her first dose of Bentyl and began to suffer severe nausea with vomiting. Her vomiting has been intractable, not responding to Zofran. Her associated nonradiating colicky abdominal pain persists unchanged and she admits accompanying anorexia. She denies other associated or accompanying signs and symptoms. She denies prior similar episodes. She has not identified any aggravating or ameliorating factors for her nausea and vomiting. In the emergency room she was found to have an adynamic ileus with a mild leukocytosis. She was subsequently admitted to the hospital for further evaluation treatment. 09/07/19-year-old female came to the emergency room with complaints of nausea and vomitings. Found to have a adynamic ileus. And she was discharged on oral Bentyl and Zofran for outpatient treatment. Patient came back again with severe nausea and vomitings. Vomiting is intractable. Vomiting associated with severe abdominal pain and medical consult was called for admission for adynamic ileus with mild leukocytosis. Patient underwent for laparoscopic procedure with lysis of adhesions and reduction of the internal hernia yesterday. NG tube is clamped this morning and patient is still complaining of abdominal pains. Surgery is following the patient. Patient still does not have any bowel movements. Ashton's catheter was removed. Patient was advised to ambulate. Reason For Visit: SMALL BOWEL OBSTRUCTION Physical Exam Vital Signs: Temp Pulse Resp BP Pulse Ox 98.2 F 65 16 142/51 H 100 09/07/19 08:00 09/07/19 08:00 09/07/19 08:00 09/07/19 08:00 09/07/19 08:00 Intake & Output 09/06/19 09/07/19 09/08/19 06:59 06:59 06:59 Intake Total 2520 2177 Output Total 2150 2480 Balance 370 -303 Weight 48.3 kg 51 kg General appearance: PRESENT: no acute distress, thin Head exam: PRESENT: atraumatic Eye exam: PRESENT: PERRLA Mouth exam: PRESENT: moist, tongue midline Teeth exam: PRESENT: poor dentation Respiratory exam: PRESENT: decreased breath sounds Cardiovascular exam: PRESENT: RRR. ABSENT: diastolic murmur, rubs, systolic murmur GI/Abdominal exam: PRESENT: other - On examination patient complains of pain with gentle palpation. NG tube still in place. Bowel sounds are very very minimal are absent. Neurological exam: PRESENT: alert, awake, oriented to person, oriented to place, oriented to time, oriented to situation, CN II-XII grossly intact. ABSENT: motor sensory deficit Psychiatric exam: PRESENT: appropriate affect, normal mood. ABSENT: homicidal ideation, suicidal ideation Results Laboratory Results: 09/06/19 04:58 Impressions: Abdomen X-Ray 09/02/19 23:56 IMPRESSION: Probable small bowel ileus as above. Follow-up recommended copyright 2010 [employer]- All Rights Reserved Small Bowel X-Ray 09/04/19 00:00 IMPRESSION: Small bowel obstruction with delayed contrast movement into the jejunum. KUB X-Ray 09/06/19 00:00 IMPRESSION: 1. Persistent dilated loops of small bowel throughout the central abdomen measuring up to 4.3 cm compatible with obstruction, similar to prior 2. Nasoenteric tube tip overlies gastric body. Assessment and Plan - Diagnosis (1) Adynamic ileus Is this a current diagnosis for this admission?: Yes Plan: 09/07/2019-patient admitted with a dynamic ileus, status post laparoscopy and lysis of the adhesions done. NG tube is clamped at this time. Patient still does not have any bowel movements. (2) Essential hypertension Is this a current diagnosis for this admission?: No Plan: 07/09/2019-patient has history of chronic essential hypertension takes amlodipine 5 mg p.o. daily. To continue the medication in the hospital stay. Patient is on PRN IV hydralazine for elevated blood pressures. - Plan Summary Summary: Patient is admitted to the medical floor where she will receive routine supportive and symptomatic cares. She will be treated with IV fluids and IV antiemetics utilizing Reglan. She will be started on a clear liquid diet and advanced to a cardiac diet as tolerated. Her amlodipine will be restarted for her hypertension when she is able to tolerate oral medications, until that time she will be treated with hydralazine 20 mg IV every 4 hours as needed. She will use morphine sulfate 2 to 4 mg IV every 2 hours as needed for pain control and Ativan 1 mg IV every 4 hours as needed for anxiety or restlessness. CBCs, metabolic profiles and magnesium levels will be obtained as appropriate. 09/04/2019 Temperature 98.5 pulse is around 60 blood pressure appears stable White blood cell count is down to 10.8 lipase is down to 29 KUB shows slight worsening of her ileus Patient is more tender to palpation today in the lower abdomen right lower quadrant seems to be the worse Bowel sounds are hypoactive patient is also complaining of some back pain on the right flank I am going to repeat a UA this morning She has been seen by general surgery and is recommended a small bowel series Continue n.p.o. I have explained all this to the patient and she seems satisfied 09/05/[address] NG-tube in place, according to nursing it has drained 1350, since sometime yesterday evening Patient has had no further vomiting Patient is less tender today to palpation White blood cell count is still slightly elevated at 14.5, patient is on no antibiotics IV fluids running at 100/h Small bowel series was performed yesterday and KUB was done this morning. Surgery to see patient and make decision concerning treatment plan. I called patient's daughter yesterday evening and discussed patient's current situation at that time. I told her I would call her back when I had more information, , Lexus. 09/06/2019 Temp 99 2 pulse 77 blood pressure 135/43 O2 sat 97% on room air Patient's white count is come down to 9.3 Potassium is trended down slightly to 3.1, I am ordering a stat K riders now, since pt is going to [place] She has failed with conservative therapy, n.p.o., NG tube Patient scheduled for surgery today
[2019-09-07 10:55] LABS: BLOOD UREA NITROGEN 5 mg/dL (7-20); CALCIUM 8.5 mg/dL (8.4-10.2); CARBON DIOXIDE 29 mmol/L (22-30); CHLORIDE 97 mmol/L (98-107); GLUCOSE 135 mg/dL (75-110); POTASSIUM 3.5 mmol/L (3.6-5.0)
[2019-09-07 11:02] LABS: ANION GAP 4 (5-19)
[2019-09-07] MEDS: AMLODIPINE BESYLATE 2.5 MG TABLET PO SCH (11:09)
[2019-09-07] MEDS ORDERED: POTASSIUM CHLORIDE 20 MEQ/50 ML RTU IV ONE (16:00)
[2019-09-07] MEDS: NORMAL SALINE 1000 ML 1,000 ML IV PRN (16:24)
[2019-09-08] MEDS: NORMAL SALINE 1000 ML 1,000 ML IV PRN ×3 (01:42→22:46)
[2019-09-08 06:01] LABS: ALBUMIN 2.5 g/dL (3.5-5.0); ALKALINE PHOSPHATASE 47 U/L (38-126); ASPARTATE AMINO TRANSFERASE 18 U/L (14-36); BILIRUBIN,TOTAL 0.8 mg/dL (0.2-1.3); BLOOD UREA NITROGEN 5 mg/dL (7-20); CALCIUM 8.3 mg/dL (8.4-10.2); CARBON DIOXIDE 27 mmol/L (22-30); CHLORIDE 99 mmol/L (98-107); GLUCOSE 99 mg/dL (75-110); POTASSIUM 3.7 mmol/L (3.6-5.0); TOTAL PROTEIN 4.7 g/dL (6.3-8.2)
[2019-09-08 06:06] LABS: ANION GAP 5 (5-19)
[2019-09-08] MEDS: METOCLOPRAMIDE HCL INJ/PF 10 MG/2 ML SDV IV SCH ×4 (06:06→23:50)
[2019-09-08] MEDS: HEPARIN SOD (PORCINE) 5,000 UNIT/ML 1 ML VIAL SUBCUT SCH ×3 (06:06→21:13)
[2019-09-08 06:09] LABS: ABSOLUTE LYMPHOCYTES (AUTO) 0.9 10^3/uL (0.5-4.7); ABSOLUTE MONOCYTES (AUTO) 1.1 10^3/uL (0.1-1.4); ABSOLUTE NEUT (AUTO) 7.9 10^3/uL (1.7-8.2); BASOPHILS % (AUTO) 0.3 % (0-2); EOSINOPHILS % (AUTO) 0.4 % (0-6); HEMATOCRIT 34.8 % (36.0-47.0); LYMPHOCYTES % (AUTO) 8.7 % (13-45); MEAN CORPUSCULAR HEMOGLOBIN 31.1 pg (27.0-33.4); MEAN CORPUSCULAR HGB CONC 34.5 g/dL (32.0-36.0); MEAN CORPUSCULAR VOLUME 90 fl (80-97); MONOCYTES % (AUTO) 10.9 % (3-13); PLATELET COUNT 209 10^3/uL (150-450); RED BLOOD COUNT 3.86 10^6/uL (3.72-5.28); SEGMENTED NEUTROPHILS % (AUTO) 79.7 % (42-78); TOTAL CELLS COUNTED % (AUTO) 100 %; WHITE BLOOD COUNT 9.9 10^3/uL (4.0-10.5)
[2019-09-08] MEDS: MORPHINE SULFATE 10 MG/ML INJ IV PRN (07:58)
--- NOTE | 2019-09-08 09:13 | PDOC PROGRESS REPORT ---
Subjective Progress Note for:: 09/08/19 Subjective:: 79 year old female who re-presented to the emergency room with acute severe nausea and vomiting. 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 She was seen by in the ER, diagnosed with an adynamic ileus and was discharged to home with oral Bentyl and Zofran for outpatient treatment. After arriving home she took her first dose of Bentyl and began to suffer severe nausea with vomiting. Her vomiting has been intractable, not responding to Zofran. Her associated nonradiating colicky abdominal pain persists unchanged and she admits accompanying anorexia. She denies other associated or accompanying signs and symptoms. She denies prior similar episodes. She has not identified any aggravating or ameliorating factors for her nausea and vomiting. In the emergency room she was found to have an adynamic ileus with a mild leukocytosis. She was subsequently admitted to the hospital for further evaluation treatment. 09/07/19-year-old female came to the emergency room with complaints of nausea and vomitings. Found to have a adynamic ileus. And she was discharged on oral Bentyl and Zofran for outpatient treatment. Patient came back again with severe nausea and vomitings. Vomiting is intractable. Vomiting associated with severe abdominal pain and medical consult was called for admission for adynamic ileus with mild leukocytosis. Patient underwent for laparoscopic procedure with lysis of adhesions and reduction of the internal hernia yesterday. NG tube is clamped this morning and patient is still complaining of abdominal pains. Surgery is following the patient. Patient still does not have any bowel movements. Ashton's catheter was removed. Patient was advised to ambulate. 09/08/19-no acute events the last 24 hours. Afebrile. NG tube is still draining minimum. Passing little bit of flatus as per the patient. Reason For Visit: SMALL BOWEL OBSTRUCTION Physical Exam Vital Signs: Temp Pulse Resp BP Pulse Ox 98.2 F 65 16 153/50 H 96 09/08/19 07:09 09/08/19 07:09 09/08/19 07:09 09/08/19 07:09 09/08/19 07:09 Intake & Output 09/07/19 09/08/19 09/09/19 06:59 06:59 06:59 Intake Total 2177 980 Output Total 2530 4450 Balance -353 -0561 Weight 51 kg 50.6 kg General appearance: PRESENT: no acute distress, thin Head exam: PRESENT: atraumatic Eye exam: PRESENT: PERRLA Mouth exam: PRESENT: moist, tongue midline Teeth exam: PRESENT: poor dentation Neck exam: ABSENT: carotid bruit, JVD, lymphadenopathy, thyromegaly Respiratory exam: PRESENT: decreased breath sounds Cardiovascular exam: PRESENT: RRR. ABSENT: diastolic murmur, rubs, systolic murmur GI/Abdominal exam: PRESENT: tenderness, other - Bowel sounds are present. Rectal exam: PRESENT: deferred Extremities exam: PRESENT: full ROM. ABSENT: calf tenderness, clubbing, pedal edema Neurological exam: PRESENT: alert, awake, oriented to person, oriented to place, oriented to time, oriented to situation, CN II-XII grossly intact. ABSENT: motor sensory deficit Psychiatric exam: PRESENT: appropriate affect, normal mood. ABSENT: homicidal ideation, suicidal ideation Results Laboratory Results: 09/08/19 06:02 09/08/19 05:21 09/07/19 09/08/19 09/08/19 09:53 05:21 05:21 WBC Cancelled RBC Cancelled Hgb Cancelled Hct Cancelled MCV Cancelled MCH Cancelled MCHC Cancelled RDW Cancelled Plt Count Cancelled Seg Neutrophils % Cancelled Sodium 129.6 L 128.9 L Potassium 3.5 L 3.7 Chloride 97 L 99 Carbon Dioxide 29 27 Anion Gap 4 L 5 BUN 5 L 5 L Creatinine 0.41 L 0.40 L Est GFR ( Amer) > 60 > 60 Glucose 135 H 99 Calcium 8.5 8.3 L Magnesium 1.7 Total Bilirubin 0.8 AST 18 Alkaline Phosphatase 47 Total Protein 4.7 L Albumin 2.5 L 09/08/19 06:02 WBC 9.9 RBC 3.86 Hgb 12.0 Hct 34.8 L MCV 90 MCH 31.1 MCHC 34.5 RDW 13.0 Plt Count 209 Seg Neutrophils % 79.7 H Sodium Potassium Chloride Carbon Dioxide Anion Gap BUN Creatinine Est GFR ( Amer) Glucose Calcium Magnesium Total Bilirubin AST Alkaline Phosphatase Total Protein Albumin Impressions: Abdomen X-Ray 09/02/19 23:56 IMPRESSION: Probable small bowel ileus as above. Follow-up recommended copyright 2010 [employer]- All Rights Reserved Small Bowel X-Ray 09/04/19 00:00 IMPRESSION: Small bowel obstruction with delayed contrast movement into the jejunum. KUB X-Ray 09/06/19 00:00 IMPRESSION: 1. Persistent dilated loops of small bowel throughout the central abdomen measuring up to 4.3 cm compatible with obstruction, similar to prior 2. Nasoenteric tube tip overlies gastric body. Assessment and Plan - Diagnosis (1) Adynamic ileus Is this a current diagnosis for this admission?: Yes Plan: 09/07/2019-patient admitted with adynamic ileus, status post laparoscopy and lysis of the adhesions done. NG tube is clamped at this time. Patient still does not have any bowel movements. 09/08/2019-patient admitted with adynamic ileus status post surgery and the lysis of the adhesions. NG tube still in place. Bowel sounds are present. Patient passing little bit of flatus. (2) Essential hypertension Is this a current diagnosis for this admission?: No Plan: 09/07/2019-patient has history of chronic essential hypertension takes amlodipine 5 mg p.o. daily. To continue the medication in the hospital stay. Patient is on PRN IV hydralazine for elevated blood pressures. 09/08/2019-blood pressure today is 146/61. Stable. - Plan Summary Summary: Patient is admitted to the medical floor where she will receive routine supportive and symptomatic cares. She will be treated with IV fluids and IV antiemetics utilizing Reglan. She will be started on a clear liquid diet and advanced to a cardiac diet as tolerated. Her amlodipine will be restarted for her hypertension when she is able to tolerate oral medications, until that time she will be treated with hydralazine 20 mg IV every 4 hours as needed. She will use morphine sulfate 2 to 4 mg IV every 2 hours as needed for pain control and Ativan 1 mg IV every 4 hours as needed for anxiety or restlessness. CBCs, metabolic profiles and magnesium levels will be obtained as appropriate. 09/04/2019 Temperature 98.5 pulse is around 60 blood pressure appears stable White blood cell count is down to 10.8 lipase is down to 29 KUB shows slight worsening of her ileus Patient is more tender to palpation today in the lower abdomen right lower quadrant seems to be the worse Bowel sounds are hypoactive patient is also complaining of some back pain on the right flank I am going to repeat a UA this morning She has been seen by general surgery and is recommended a small bowel series Continue n.p.o. I have explained all this to the patient and she seems satisfied 09/05/2019 NG-tube in place, according to nursing it has drained 1350, since sometime yesterday evening Patient has had no further vomiting Patient is less tender today to palpation White blood cell count is still slightly elevated at 14.5, patient is on no antibiotics IV fluids running at 100/h Small bowel series was performed yesterday and KUB was done this morning. Surgery to see patient and make decision concerning treatment plan. I called patient's daughter yesterday evening and discussed patient's current situation at that time. I told her I would call her back when I had more information, , Lexus. 09/06/2019 Temp 99 2 pulse 77 blood pressure 135/43 O2 sat 97% on room air Patient's white count is come down to 9.3 Potassium is trended down slightly to 3.1, I am ordering a stat K riders now, since pt is going to [place] She has failed with conservative therapy, n.p.o., NG tube Patient scheduled for surgery today
[2019-09-08] MEDS: AMLODIPINE BESYLATE 2.5 MG TABLET PO SCH (10:19)
[2019-09-08] MEDS: FAMOTIDINE INJ/PF 20 MG/2 ML SDV IV SCH ×2 (10:20→21:12)
--- NOTE | 2019-09-08 10:39 | PDOC PROGRESS REPORT ---
Subjective Progress Note for:: 09/08/19 Reason For Visit: SMALL BOWEL OBSTRUCTION Physical Exam Vital Signs: Temp Pulse Resp BP Pulse Ox 98.2 F 65 16 153/50 H 96 09/08/19 07:09 09/08/19 07:09 09/08/19 07:09 09/08/19 07:09 09/08/19 07:09 Intake & Output 09/07/19 09/08/19 09/09/19 06:59 06:59 06:59 Intake Total 2177 980 Output Total 2530 8090 Balance -353 -3470 Weight 51 kg 50.6 kg Results Laboratory Results: 09/08/19 06:02 09/08/19 05:21 09/07/19 09/08/19 09/08/19 09:53 05:21 05:21 WBC Cancelled RBC Cancelled Hgb Cancelled Hct Cancelled MCV Cancelled MCH Cancelled MCHC Cancelled RDW Cancelled Plt Count Cancelled Seg Neutrophils % Cancelled Sodium 129.6 L 128.9 L Potassium 3.5 L 3.7 Chloride 97 L 99 Carbon Dioxide 29 27 Anion Gap 4 L 5 BUN 5 L 5 L Creatinine 0.41 L 0.40 L Est GFR ( Amer) > 60 > 60 Glucose 135 H 99 Calcium 8.5 8.3 L Magnesium 1.7 Total Bilirubin 0.8 AST 18 Alkaline Phosphatase 47 Total Protein 4.7 L Albumin 2.5 L 09/08/19 06:02 WBC 9.9 RBC 3.86 Hgb 12.0 Hct 34.8 L MCV 90 MCH 31.1 MCHC 34.5 RDW 13.0 Plt Count 209 Seg Neutrophils % 79.7 H Sodium Potassium Chloride Carbon Dioxide Anion Gap BUN Creatinine Est GFR ( Amer) Glucose Calcium Magnesium Total Bilirubin AST Alkaline Phosphatase Total Protein Albumin Impressions: Abdomen X-Ray 09/02/19 23:56 IMPRESSION: Probable small bowel ileus as above. Follow-up recommended copyright 2011 [employer]- All Rights Reserved Small Bowel X-Ray 09/04/19 00:00 IMPRESSION: Small bowel obstruction with delayed contrast movement into the jejunum. KUB X-Ray 09/06/19 00:00 IMPRESSION: 1. Persistent dilated loops of small bowel throughout the central abdomen measuring up to 4.3 cm compatible with obstruction, similar to prior 2. Nasoenteric tube tip overlies gastric body. Assessment & Plan - Diagnosis (1) Small bowel obstruction Is this a current diagnosis for this admission?: Yes - Plan Summary Plan Summary: This is an 79-year-old female status post exploratory laparoscopy with laparos copic lysis of adhesions. The patient reports that she is passing a small amount of flatus today. Her NG output has diminished significantly. I will remove her NG tube today. Okay for ice chips and popsicles. No oral intake except for ice chips and popsicles. Ambulate. Aggressive pulmonary toilet. Advance diet once bowel function improves.
[2019-09-09 04:43] LABS: ABSOLUTE EOSINOPHILS # (AUTO) 0.1 10^3/uL (0.0-0.6); ABSOLUTE LYMPHOCYTES (AUTO) 0.7 10^3/uL (0.5-4.7); ABSOLUTE MONOCYTES (AUTO) 0.9 10^3/uL (0.1-1.4); ABSOLUTE NEUT (AUTO) 6.5 10^3/uL (1.7-8.2); BASOPHILS % (AUTO) 0.5 % (0-2); EOSINOPHILS % (AUTO) 0.9 % (0-6); HEMATOCRIT 33.9 % (36.0-47.0); HEMOGLOBIN 11.9 g/dL (12.0-15.5); LYMPHOCYTES % (AUTO) 8.7 % (13-45); MEAN CORPUSCULAR HEMOGLOBIN 31.4 pg (27.0-33.4); MEAN CORPUSCULAR HGB CONC 35.1 g/dL (32.0-36.0); MEAN CORPUSCULAR VOLUME 89 fl (80-97); MONOCYTES % (AUTO) 10.9 % (3-13); PLATELET COUNT 223 10^3/uL (150-450); RED CELL DISTRIBUTION WIDTH 12.8 % (11.5-14.0); TOTAL CELLS COUNTED % (AUTO) 100 %; WHITE BLOOD COUNT 8.2 10^3/uL (4.0-10.5)
[2019-09-09] MEDS: HEPARIN SOD (PORCINE) 5,000 UNIT/ML 1 ML VIAL SUBCUT SCH ×3 (05:12→21:44)
[2019-09-09] MEDS: METOCLOPRAMIDE HCL INJ/PF 10 MG/2 ML SDV IV SCH ×4 (05:12→23:48)
[2019-09-09 05:22] LABS: ALBUMIN 2.5 g/dL (3.5-5.0); ALKALINE PHOSPHATASE 49 U/L (38-126); ANION GAP 8 (5-19); ASPARTATE AMINO TRANSFERASE 14 U/L (14-36); BILIRUBIN,TOTAL 0.6 mg/dL (0.2-1.3); BLOOD UREA NITROGEN 6 mg/dL (7-20); CALCIUM 8.1 mg/dL (8.4-10.2); CARBON DIOXIDE 23 mmol/L (22-30); CHLORIDE 100 mmol/L (98-107); GLUCOSE 97 mg/dL (75-110); POTASSIUM 3.3 mmol/L (3.6-5.0); TOTAL PROTEIN 4.2 g/dL (6.3-8.2)
[2019-09-09] MEDS: NORMAL SALINE 1000 ML 1,000 ML IV PRN (07:59)
[2019-09-09] MEDS: POTASSI CL 20 MEQ/50 ML RIDER 20 MEQ/50 ML RTUPB IV SCH ×2 (08:00→10:24)
--- NOTE | 2019-09-09 08:34 | PDOC PROGRESS REPORT ---
Subjective Progress Note for:: 09/09/19 Subjective:: 79 year old female who re-presented to the emergency room with acute severe nausea and vomiting. She admits the onset of mild to moderate generalized colicky abdominal pain on the dam tender assistant of 09/02/2019. She was seen by in the ER, diagnosed with an adynamic ileus and was discharged to home with oral Bentyl and Zofran for outpatient treatment. After arriving home she took her first dose of Bentyl and began to suffer severe nausea with vomiting. Her vomiting has been intractable, not responding to Zofran. Her associated nonradiating colicky abdominal pain persists unchanged and she admits accompanying anorexia. She denies other associated or accompanying signs and symptoms. She denies prior similar episodes. She has not identified any aggravating or ameliorating factors for her nausea and vomiting. In the emergency room she was found to have an adynamic ileus with a mild leukocytosis. She was subsequently admitted to the hospital for further evaluation treatment. 09/07/19-year-old female came to the emergency room with complaints of nausea and vomitings. Found to have a adynamic ileus. And she was discharged on oral Bentyl and Zofran for outpatient treatment. Patient came back again with severe nausea and vomitings. Vomiting is intractable. Vomiting associated with severe abdominal pain and medical consult was called for admission for adynamic ileus with mild leukocytosis. Patient underwent for laparoscopic procedure with lysis of adhesions and reduction of the internal hernia yesterday. NG tube is clamped this morning and patient is still complaining of abdominal pains. Surgery is following the patient. Patient still does not have any bowel movements. Ashton's catheter was removed. Patient was advised to ambulate. 09/08/19-no acute events the last 24 hours. Afebrile. NG tube is still draining minimum. Passing little bit of flatus as per the patient. 09/09/19-patient passing more flatus today. Tolerated ice chips. Off the NG tube. Waiting for surgical follow-up today. Reason For Visit: SMALL BOWEL OBSTRUCTION Physical Exam Vital Signs: Temp Pulse Resp BP Pulse Ox 98.8 F 66 14 120/48 L 95 09/09/19 00:34 09/09/19 00:34 09/09/19 00:34 09/09/19 00:34 09/09/19 00:34 Intake & Output 09/08/19 09/09/19 09/10/19 06:59 06:59 06:59 Intake Total 980 2560 922 Output Total 4450 3500 Balance -3470 -940 922 Weight 50.6 kg 50 kg General appearance: PRESENT: cooperative, thin Head exam: PRESENT: atraumatic Eye exam: PRESENT: PERRLA Mouth exam: PRESENT: moist, tongue midline Neck exam: ABSENT: carotid bruit, JVD, lymphadenopathy, thyromegaly Respiratory exam: PRESENT: clear to auscultation [place]. ABSENT: rales, rhonchi, wheezes Cardiovascular exam: PRESENT: RRR. ABSENT: diastolic murmur, rubs, systolic murmur GI/Abdominal exam: PRESENT: normal bowel sounds, tenderness. ABSENT: guarding, rigid Rectal exam: PRESENT: deferred Extremities exam: PRESENT: full ROM. ABSENT: calf tenderness, clubbing, pedal edema Neurological exam: PRESENT: alert, awake, oriented to person, oriented to place, oriented to time, oriented to situation, CN II-XII grossly intact. ABSENT: motor sensory deficit Psychiatric exam: PRESENT: appropriate affect, normal mood. ABSENT: homicidal ideation, suicidal ideation Results Laboratory Results: 09/09/19 04:24 09/09/19 04:24 09/09/19 09/09/19 04:24 04:24 WBC 8.2 RBC 3.80 Hgb 11.9 L Hct 33.9 L MCV 89 MCH 31.4 MCHC 35.1 RDW 12.8 Plt Count 223 Seg Neutrophils % 79.0 H Sodium 131.1 L Potassium 3.3 L Chloride 100 Carbon Dioxide 23 Anion Gap 8 BUN 6 L Creatinine 0.38 L Est GFR ( Amer) > 60 Glucose 97 Calcium 8.1 L Magnesium 1.8 Total Bilirubin 0.6 AST 14 Alkaline Phosphatase 49 Total Protein 4.2 L Albumin 2.5 L Impressions: Abdomen X-Ray 09/02/19 23:56 IMPRESSION: Probable small bowel ileus as above. Follow-up recommended copyright 2010 [employer]- All Rights Reserved Small Bowel X-Ray 09/04/19 00:00 IMPRESSION: Small bowel obstruction with delayed contrast movement into the jejunum. KUB X-Ray 09/06/19 00:00 IMPRESSION: 1. Persistent dilated loops of small bowel throughout the central abdomen measuring up to 4.3 cm compatible with obstruction, similar to prior 2. Nasoenteric tube tip overlies gastric body. Assessment and Plan - Diagnosis (1) Adynamic ileus Is this a current diagnosis for this admission?: Yes Plan: 09/07/2019-patient admitted with adynamic ileus, status post laparoscopy and lysis of the adhesions done. NG tube is clamped at this time. Patient still does not have any bowel movements. 09/08/2019-patient admitted with adynamic ileus status post surgery and the lysis of the adhesions. NG tube still in place. Bowel sounds are present. Patient passing little bit of flatus. 09/09/2019-status post laparoscopic lysis of the adhesions and a small bowel obstruction is resolving patient is passing flatus able to tolerate the ice chips, NG tube is off for the last 24 hours. Dietary recommendations as per surgical team. (2) Essential hypertension Is this a current diagnosis for this admission?: No Plan: 09/07/2019-patient has history of chronic essential hypertension takes amlodipine 5 mg p.o. daily. To continue the medication in the hospital stay. Patient is on PRN IV hydralazine for elevated blood pressures. 09/08/2019-blood pressure today is 146/61. Stable. 09/09/2019-blood pressure today is 120/48. Stable. Plan is to continue the present management at this time. - Plan Summary Summary: Patient is admitted to the medical floor where she will receive routine supportive and symptomatic cares. She will be treated with IV fluids and IV antiemetics utilizing Reglan. She will be started on a clear liquid diet and advanced to a cardiac diet as tolerated. Her amlodipine will be restarted for her hypertension when she is able to tolerate oral medications, until that time she will be treated with hydralazine 20 mg IV every 4 hours as needed. She will use morphine sulfate 2 to 4 mg IV every 2 hours as needed for pain control and Ativan 1 mg IV every 4 hours as needed for anxiety or restlessness. CBCs, metabolic profiles and magnesium levels will be obtained as appropriate. 09/04/2019 Temperature 98.5 pulse is around 60 blood pressure appears stable White blood cell count is down to 10.8 lipase is down to 29 KUB shows slight worsening of her ileus Patient is more tender to palpation today in the lower abdomen right lower quadrant seems to be the worse Bowel sounds are hypoactive patient is also complaining of some back pain on the right flank I am going to repeat a UA this morning She has been seen by general surgery and is recommended a small bowel series Continue n.p.o. I have explained all this to the patient and she seems satisfied 09/05/2019 NG-tube in place, according to nursing it has drained 1350, since sometime yesterday evening Patient has had no further vomiting Patient is less tender today to palpation White blood cell count is still slightly elevated at 14.5, patient is on no antibiotics IV fluids running at 100/h Small bowel series was performed yesterday and KUB was done this morning. Surgery to see patient and make decision concerning treatment plan. I called patient's daughter yesterday evening and discussed patient's current situation at that time. I told her I would call her back when I had more information, , [place]. 09/06/2019 Temp 99 2 pulse 77 blood pressure 135/43 O2 sat 97% on room air Patient's white count is come down to 9.3 Potassium is trended down slightly to 3.1, I am ordering a stat K riders now, since pt is going to OR She has failed with conservative therapy, n.p.o., NG tube Patient scheduled for surgery today
--- NOTE | 2019-09-09 08:47 | PDOC PROGRESS REPORT ---
Subjective Progress Note for:: 09/09/19 Subjective:: Feels well. Tolerated NG to removal. Had a bowel movement. Reason For Visit: SMALL BOWEL OBSTRUCTION Physical Exam Vital Signs: Temp Pulse Resp BP Pulse Ox 97.5 F 61 17 129/54 H 95 09/09/19 07:58 09/09/19 07:58 09/09/19 07:58 09/09/19 07:58 09/09/19 07:58 Intake & Output 09/08/19 09/09/19 09/10/19 06:59 06:59 06:59 Intake Total 980 2560 922 Output Total 4450 3500 Balance -3470 -940 922 Weight 50.6 kg 50 kg General appearance: PRESENT: no acute distress, cooperative Respiratory exam: PRESENT: clear to auscultation [place] Cardiovascular exam: PRESENT: RRR GI/Abdominal exam: PRESENT: other - Soft, nondistended, minimal tenderness. Active bowel sounds Extremities exam: PRESENT: other - No swelling and no tenderness. Results Laboratory Results: 09/09/19 04:24 09/09/19 04:24 09/09/19 09/09/19 04:24 04:24 WBC 8.2 RBC 3.80 Hgb 11.9 L Hct 33.9 L MCV 89 MCH 31.4 MCHC 35.1 RDW 12.8 Plt Count 223 Seg Neutrophils % 79.0 H Sodium 131.1 L Potassium 3.3 L Chloride 100 Carbon Dioxide 23 Anion Gap 8 BUN 6 L Creatinine 0.38 L Est GFR ( Amer) > 60 Glucose 97 Calcium 8.1 L Magnesium 1.8 Total Bilirubin 0.6 AST 14 Alkaline Phosphatase 49 Total Protein 4.2 L Albumin 2.5 L Impressions: Abdomen X-Ray 09/02/19 23:56 IMPRESSION: Probable small bowel ileus as above. Follow-up recommended copyright 2010 [employer]- All Rights Reserved Small Bowel X-Ray 09/04/19 00:00 IMPRESSION: Small bowel obstruction with delayed contrast movement into the je junum. KUB X-Ray 09/06/19 00:00 IMPRESSION: 1. Persistent dilated loops of small bowel throughout the central abdomen measuring up to 4.3 cm compatible with obstruction, similar to prior 2. Nasoenteric tube tip overlies gastric body. Assessment & Plan - Diagnosis (1) Small bowel obstruction Is this a current diagnosis for this admission?: Yes Plan: Status post laparoscopic lysis of adhesions. Patient looks very good. Will start clears. Possible discharge home tomorrow.
[2019-09-09] MEDS: FAMOTIDINE INJ/PF 20 MG/2 ML SDV IV SCH ×2 (10:24→21:44)
[2019-09-09] MEDS: AMLODIPINE BESYLATE 2.5 MG TABLET PO SCH (10:24)
[2019-09-09] MEDS: MORPHINE SULFATE 10 MG/ML INJ IV PRN (16:44)
[2019-09-09] MEDS: ACETAMINOPHEN 325 MG TABLET PO PRN (21:45)
[2019-09-10] MEDS: HEPARIN SOD (PORCINE) 5,000 UNIT/ML 1 ML VIAL SUBCUT SCH (06:12)
[2019-09-10] MEDS: METOCLOPRAMIDE HCL INJ/PF 10 MG/2 ML SDV IV SCH ×2 (06:12→12:58)
[2019-09-10 06:42] LABS: ABSOLUTE BASOPHILS # (AUTO) 0.1 10^3/uL (0.0-0.2); ABSOLUTE EOSINOPHILS # (AUTO) 0.2 10^3/uL (0.0-0.6); ABSOLUTE LYMPHOCYTES (AUTO) 1.7 10^3/uL (0.5-4.7); ABSOLUTE MONOCYTES (AUTO) 1.1 10^3/uL (0.1-1.4); ABSOLUTE NEUT (AUTO) 5.4 10^3/uL (1.7-8.2); BASOPHILS % (AUTO) 1.3 % (0-2); EOSINOPHILS % (AUTO) 2.5 % (0-6); HEMATOCRIT 36.1 % (36.0-47.0); HEMOGLOBIN 12.6 g/dL (12.0-15.5); LYMPHOCYTES % (AUTO) 19.7 % (13-45); MEAN CORPUSCULAR HEMOGLOBIN 31.1 pg (27.0-33.4); MEAN CORPUSCULAR VOLUME 89 fl (80-97); MONOCYTES % (AUTO) 13.3 % (3-13); PLATELET COUNT 273 10^3/uL (150-450); RED BLOOD COUNT 4.06 10^6/uL (3.72-5.28); RED CELL DISTRIBUTION WIDTH 13.1 % (11.5-14.0); SEGMENTED NEUTROPHILS % (AUTO) 63.2 % (42-78); TOTAL CELLS COUNTED % (AUTO) 100 %; WHITE BLOOD COUNT 8.5 10^3/uL (4.0-10.5)
[2019-09-10 06:49] LABS: ALBUMIN 2.9 g/dL (3.5-5.0); ALKALINE PHOSPHATASE 58 U/L (38-126); ANION GAP 8 (5-19); ASPARTATE AMINO TRANSFERASE 20 U/L (14-36); BILIRUBIN,TOTAL 0.5 mg/dL (0.2-1.3); BLOOD UREA NITROGEN 6 mg/dL (7-20); CALCIUM 8.9 mg/dL (8.4-10.2); CARBON DIOXIDE 23 mmol/L (22-30); CHLORIDE 102 mmol/L (98-107); GLUCOSE 98 mg/dL (75-110); POTASSIUM 3.7 mmol/L (3.6-5.0); TOTAL PROTEIN 5.2 g/dL (6.3-8.2)
[2019-09-10] MEDS: ACETAMINOPHEN 325 MG TABLET PO PRN (08:49)
[2019-09-10] MEDS: AMLODIPINE BESYLATE 2.5 MG TABLET PO SCH (09:20)
[2019-09-10] MEDS: FAMOTIDINE INJ/PF 20 MG/2 ML SDV IV SCH (09:20)
--- NOTE | 2019-09-10 10:03 | PDOC PROGRESS REPORT ---
Subjective Progress Note for:: 09/10/19 Reason For Visit: SMALL BOWEL OBSTRUCTION Physical Exam Vital Signs: Temp Pulse Resp BP Pulse Ox 97.9 F 60 14 128/57 H 95 09/10/19 00:02 09/10/19 00:02 09/10/19 00:02 09/10/19 00:02 09/10/19 00:02 Intake & Output 09/09/19 09/10/19 09/11/19 06:59 06:59 06:59 Intake Total 2560 1822 Output Total 3500 2000 Balance -940 -178 Weight 50 kg 50 kg General appearance: PRESENT: no acute distress Eye exam: PRESENT: EOMI Mouth exam: PRESENT: moist Respiratory exam: PRESENT: clear to auscultation [place] Cardiovascular exam: PRESENT: RRR Pulses: PRESENT: normal radial pulses, normal femoral pulses Breast: PRESENT: Normal GI/Abdominal exam: PRESENT: soft Rectal exam: PRESENT: deferred Extremities exam: PRESENT: full ROM Musculoskeletal exam: PRESENT: full ROM Neurological exam: PRESENT: alert, awake, oriented to person, oriented to place Psychiatric exam: PRESENT: appropriate affect Skin exam: PRESENT: dry Results Laboratory Results: 09/10/19 05:50 09/10/19 05:50 09/10/19 09/10/19 05:50 05:50 WBC 8.5 RBC 4.06 Hgb 12.6 Hct 36.1 MCV 89 MCH 31.1 MCHC 35.0 RDW 13.1 Plt Count 273 Seg Neutrophils % 63.2 Sodium 132.5 L Potassium 3.7 Chloride 102 Carbon Dioxide 23 Anion Gap 8 BUN 6 L Creatinine 0.55 Est GFR ( Amer) > 60 Glucose 98 Calcium 8.9 Magnesium 1.9 Total Bilirubin 0.5 AST 20 Alkaline Phosphatase 58 Total Protein 5.2 L Albumin 2.9 L Impressions: Abdomen X-Ray 09/02/19 23:56 IMPRESSION: Probable small bowel ileus as above. Follow-up recommended copyright 2010 [employer]- All Rights Reserved Small Bowel X-Ray 09/04/19 00:00 IMPRESSION: Small bowel obstruction with delayed contrast movement into the jejunum. KUB X-Ray 09/06/19 00:00 IMPRESSION: 1. Persistent dilated loops of small bowel throughout the central abdomen measuring up to 4.3 cm compatible with obstruction, similar to prior 2. Nasoenteric tube tip overlies gastric body. Assessment & Plan - Plan Summary Plan Summary: s/p troy;lis of adhesions now doing well return of bowel function luis reg diet ready for dc home f/u in surgery clinic in 7-10 days.
--- NOTE | 2019-09-10 12:18 | PDOC DISCHARGE SUMMARY ---
Impression - Admit/DC Date/PCP Admission Date/Primary Care Provider: 09/06/19 13:07 ZIYAD ZAZUETA NP Discharge Date: 09/10/19 - Discharge Diagnosis (1) Hypokalemia Is this a current diagnosis for this admission?: Yes (2) Adynamic ileus Is this a current diagnosis for this admission?: Yes (3) Essential hypertension Is this a current diagnosis for this admission?: Yes (4) Leukocytosis Is this a current diagnosis for this admission?: Yes (5) Nausea and vomiting Is this a current diagnosis for this admission?: Yes (6) Small bowel obstruction Is this a current diagnosis for this admission?: Yes - Additional Information Resuscitation Status: Full Code Discharge Diet: As Tolerated Discharge Activity: Activity As Tolerated Referrals: [facility] [Provider Group] - 09/20/19 9:45 am (DR. ANDERSON) Home Medications: Amlodipine Besylate [Norvasc 2.5 mg Tablet] 2.5 mg PO DAILY #15 tablet 09/26/15 Cholecalciferol (Vitamin D3) [Vitamin D3 1000 Unit Tablet] 1,000 unit PO DAILY 09/03/19 Cyanocobalamin (Vitamin B-12) [Vitamin B-12 1000 mcg Tablet] 1,000 mcg PO DAILY 09/03/19 History of Present Illiness History of Present Illness: SE DOMINGUEZ is a 79 year old female Patient was admitted with severe nausea and vomiting as well as colicky generalized abdominal pain. She was diagnosed with adynamic ileus. Please see admitting history and physical for full details. Hospital Course Hospital Course: Patient was admitted with abdominal pain and she was found to have a small bowel obstruction. This did not resolve with conservative management. She was then seen by surgery and ultimately had lysis of adhesion performed. At this point she is doing well postoperatively and she has been seen by surgery today with the recommendation to discharge home and follow-up in surgical clinic in 7 to 10 days. Patient is tolerating her diet. She is having small bowel movement and she is ambulatory and has been hemodynamically stable Physical Exam Vital Signs: Temp Pulse Resp BP Pulse Ox 97.9 F 60 14 128/57 H 95 09/10/19 00:02 09/10/19 00:02 09/10/19 00:02 09/10/19 00:02 09/10/19 00:02 Intake & Output 09/09/19 09/10/19 09/11/19 06:59 06:59 06:59 Intake Total 2560 3962 Output Total 3500 2000 Balance -940 -178 Weight 50 kg 50 kg General appearance: PRESENT: no acute distress Head exam: PRESENT: atraumatic Respiratory exam: PRESENT: clear to auscultation [place], unlabored Cardiovascular exam: PRESENT: RRR, +S1, +S2 GI/Abdominal exam: PRESENT: soft, tenderness - mild at incision site Rectal exam: PRESENT: deferred Musculoskeletal exam: PRESENT: ambulatory Neurological exam: PRESENT: alert, awake, oriented to person, oriented to place, oriented to time, oriented to situation, CN II-XII grossly intact. ABSENT: motor sensory deficit Psychiatric exam: PRESENT: appropriate affect Results Laboratory Results: WBC 8.5 10^3/uL (4.0-10.5) 09/10/19 05:50 RBC 4.06 10^6/uL (3.72-5.28) 09/10/19 05:50 Hgb 12.6 g/dL (12.0-15.5) 09/10/19 05:50 Hct 36.1 % (36.0-47.0) 09/10/19 05:50 MCV 89 fl (80-97) 09/10/19 05:50 MCH 31.1 pg (27.0-33.4) 09/10/19 05:50 MCHC 35.0 g/dL (32.0-36.0) 09/10/19 05:50 RDW 13.1 % (11.5-14.0) 09/10/19 05:50 Plt Count 273 10^3/uL (150-450) 09/10/19 05:50 Lymph % (Auto) 19.7 % (13-45) 09/10/19 05:50 Hendricks % (Auto) 13.3 % (3-13) H 09/10/19 05:50 Eos % (Auto) 2.5 % (0-6) 09/10/19 05:50 Baso % (Auto) 1.3 % (0-2) 09/10/19 05:50 Absolute Neuts (auto) 5.4 10^3/uL (1.7-8.2) 09/10/19 05:50 Absolute Lymphs (auto) 1.7 10^3/uL (0.5-4.7) 09/10/19 05:50 Absolute Monos (auto) 1.1 10^3/uL (0.1-1.4) 09/10/19 05:50 Absolute Eos (auto) 0.2 10^3/uL (0.0-0.6) 09/10/19 05:50 Absolute Basos (auto) 0.1 10^3/uL (0.0-0.2) 09/10/19 05:50 Seg Neutrophils % 63.2 % (42-78) 09/10/19 05:50 Platelet Estimate Cancelled 09/08/19 05:21 Sodium 132.5 mmol/L (137-145) L 09/10/19 05:50 Potassium 3.7 mmol/L (3.6-5.0) 09/10/19 05:50 Chloride 102 mmol/L (98-107) 09/10/19 05:50 Carbon Dioxide 23 mmol/L (22-30) 09/10/19 05:50 Anion Gap 8 (5-19) 09/10/19 05:50 BUN 6 mg/dL (7-20) L 09/10/19 05:50 Creatinine 0.55 mg/dL (0.52-1.25) 09/10/19 05:50 Est GFR ( Amer) > 60 (>60) 09/10/19 05:50 Est GFR (MDRD) Non-Af > 60 (>60) 09/10/19 05:50 Glucose 98 mg/dL (75-110) 09/10/19 05:50 Calcium 8.9 mg/dL (8.4-10.2) 09/10/19 05:50 Magnesium 1.9 mg/dL (1.6-2.3) 09/10/19 05:50 Total Bilirubin 0.5 mg/dL (0.2-1.3) 09/10/19 05:50 Direct Bilirubin 0.0 mg/dL (0.0-0.4) 09/10/19 05:50 Neonat Total Bilirubin Not Reportable 09/10/19 05:50 Neonat Direct Bilirubin Not Reportable 09/10/19 05:50 Neonat Indirect Bili Not Reportable 09/10/19 05:50 AST 20 U/L (14-36) 09/10/19 05:50 ALT 10 U/L (<35) 09/10/19 05:50 Alkaline Phosphatase 58 U/L (38-126) 09/10/19 05:50 Total Protein 5.2 g/dL (6.3-8.2) L 09/10/19 05:50 Albumin 2.9 g/dL (3.5-5.0) L 09/10/19 05:50 Amylase < 30 U/L (30-110) L 09/06/19 04:58 Lipase 37.3 U/L (23-300) 09/06/19 04:58 TSH 1.82 uIU/mL (0.47-4.68) 09/04/19 05:14 Urine Color YELLOW 09/04/19 18:40 Urine Appearance SLIGHTLY-CLOUDY 09/04/19 18:40 Urine pH 8.0 (5.0-9.0) 09/04/19 18:40 Ur Specific [place] 1.011 09/04/19 18:40 Urine Protein NEGATIVE mg/dL (NEGATIVE) 09/04/19 18:40 Urine Glucose (UA) 50 mg/dL (NEGATIVE) H 09/04/19 18:40 Urine Ketones TRACE mg/dL (NEGATIVE) H 09/04/19 18:40 Urine Blood SMALL (NEGATIVE) H 09/04/19 18:40 Urine Nitrite (Reflex) NEGATIVE (NEGATIVE) 09/04/19 18:40 Urine Bilirubin NEGATIVE (NEGATIVE) 09/04/19 18:40 Urine Urobilinogen NEGATIVE mg/dL (<2.0) 09/04/19 18:40 Leukocyte Esterase Rfl NEGATIVE (NEGATIVE) 09/04/19 18:40 Urine RBC (Auto) 1 /HPF 09/04/19 18:40 U Hyaline Cast (Auto) 3 /LPF 09/03/19 06:00 Urine WBC (Reflex) 1 /HPF 09/04/19 18:40 Urine Mucus (Auto) OCC /LPF 09/04/19 18:40 Urine Yeast (Budding) PRESENT /HPF 09/04/19 18:40 Urine Ascorbic Acid NEGATIVE (NEGATIVE) 09/04/19 18:40 Slides for Path Review Cancelled 09/08/19 05:21 Impressions: Abdomen X-Ray 09/02/19 23:56 IMPRESSION: Probable small bowel ileus as above. Follow-up recommended copyright 2010 [employer]- All Rights Reserved KUB X-Ray 09/04/19 00:00 IMPRESSION: Nasogastric tube in the gastric body Moderate distention of small bowel which may reflect obstruction. Generalized ileus not excluded. Recommend continued follow-up Small Bowel X-Ray 09/04/19 00:00 IMPRESSION: Small bowel obstruction with delayed contrast movement into the jejunum. KUB X-Ray 09/04/19 07:00 IMPRESSION: 1. Progressive gaseous distention of small bowel loops. Reflective of worsening ileus or developing obstruction. KUB X-Ray 09/05/19 00:00 IMPRESSION: Persistent small bowel distention may be slightly improved compared to yesterday. Appropriate nasogastric tube. KUB X-Ray 09/06/19 00:00 IMPRESSION: 1. Persistent dilated loops of small bowel throughout the central abdomen measuring up to 4.3 cm compatible with obstruction, similar to prior 2. Nasoenteric tube tip overlies gastric body. Plan Time Spent: Greater than 30 Minutes Stroke Is this a Stroke Patient?: No Acute Heart Failure - Is this a Heart Failure Patient?: No
[2019-09-10 13:29] VITALS: BP 117/38
== END 2019-09-10 14:00 | disposition home or self-care (01) | DRG 336 ==
LOC: ER 21:11 → INTOOBSV 09-03 01:49 → EH 09-03 01:49 → 4S 09-03 02:59 → OBSVTOIN 09-06 13:07
PROVIDERS: ADMIT Emergency Medicine; ATTEND Internal Medicine
PROC: 0DQV4ZZ Repair Mesentery, Percutaneous Endoscopic Approach (ICD-10-PCS; 2019-09-06)
PROC: 0DN84ZZ Release Small Intestine, Percutaneous Endoscopic Approach (ICD-10-PCS; principal; 2019-09-06 14:30)
DX: K56.0 Paralytic ileus (principal); K46.0 Unspecified abdominal hernia with obstruction, without gangrene; K66.0 Peritoneal adhesions (postprocedural) (postinfection); E87.6 Hypokalemia; I10 Essential (primary) hypertension; D72.829 Elevated white blood cell count, unspecified; R11.2 Nausea with vomiting, unspecified; M19.049 Primary osteoarthritis, unspecified hand; M16.10 Unilateral primary osteoarthritis, unspecified hip
CPT/HCPCS: 36415; 74018; 74019; 74250; 790; 80048; 80053; 81001; 82150; 83690; 83735; 84443; 85025; 85027; 87070; 96374; 96375; 99284; G0378; J0330; J0360; J0690; J1644; J2060; J2250; J2270; J2370; J2405; J2550; J2704; J2765; J3010; J3480; J3490; J7030; J7121; S0028